=== PATIENT | male | born 1960 | race Caucasian/White ===

== ENCOUNTER 2018-12-27 09:57 | Day surgery (SDC) | payer OTHER ==
[2018-12-10 10:47] VITALS: BMI 31.4
[2018-12-27] MEDS ORDERED: PROPOFOL 20 ML ONE (11:16)
[2018-12-27 12:02] VITALS: TEMP 97.7
[2018-12-27 12:22] VITALS: BP 109/69; PULSE 83
--- NOTE | 2018-12-30 16:02 | PATH ---
Surgical Pathology Report Patient Name: KALLI CLEVELAND [facility]. Rec. #: [id number] /Age/Gender: 1960 (Age: 58) / M Account: [id number] Location: [facility] Taken: 12/27/2018 Received: 12/27/2018 Reported: 12/30/2018 Physicians: Raghav Ferreira M.D. Specimen(s) Received A: POLYP LEFT COLON B: POLYP OF DISTAL SIGMOID C: POLYP RECTUM Clinical History Screening Postoperative diagnosis: Polyp, diverticulosis Final Diagnosis A. LEFT COLON, POLYP, BIOPSY: TUBULAR ADENOMA. B. DISTAL SIGMOID, POLYP, BIOPSY: SESSILE SERRATED POLYP. C. RECTUM, POLYP, BIOPSY: SESSILE SERRATED POLYP. Electronically Signed Sandra Matthews M.D. Gross Description A. Received in formalin, labeled "polyp left colon" is a jones, irregular portion of soft tissue measuring 0.3 cm. in greatest dimension. The specimen is submitted in toto in one cassette. B. Received in formalin, labeled "polyp distal sigmoid" are 2 jones, irregular portions of soft tissue measuring 0.1 and 0.2 cm. in greatest dimension. The specimens are submitted in toto in one cassette. C. Received in formalin, labeled "polyp rectum" is a jones, irregular portion of soft tissue measuring 0.2 cm. in greatest dimension. The specimen is submitted in toto in one cassette. 12/28/2018 saudi12/28/2018
== END 2018-12-27 12:25 | disposition home or self-care (01) ==
LOC: FASU-ENDO 09:57
PROVIDERS: ATTEND Internal Medicine Gastroenterology
PROC: 0DBP8ZX Excision of Rectum, Via Natural or Artificial Opening Endoscopic, Diagnostic (ICD-10-PCS; 2018-12-27)
PROC: 0DBM8ZX Excision of Descending Colon, Via Natural or Artificial Opening Endoscopic, Diagnostic (ICD-10-PCS; principal; 2018-12-27 11:26)
DX: Z12.11 Encounter for screening for malignant neoplasm of colon (principal); K57.30 Diverticulosis of large intestine without perforation or abscess without bleeding; D12.4 Benign neoplasm of descending colon; D12.5 Benign neoplasm of sigmoid colon; D12.8 Benign neoplasm of rectum
CPT/HCPCS: 88305-TC

== ENCOUNTER 2019-02-13 20:17 | Inpatient (IN) | payer OTHER ==
[2019-02-13 23:48] VITALS: BMI 32.3
--- NOTE | 2019-02-14 00:15 | HP ---
CIWA Score Nausea/Vomitin-Mild Nausea/No Vomiting Muscle Tremors: 5 Anxiety: 4-Mod. Anxious/Guarded Agitation: 4-Moderately Restless Paroxysmal Sweats: 2 Orientation: 0-Oriented Tacttile Disturbances: 0-None Auditory Disturbances: 0-None Visual Disturbances: 0-None Headache: 2-Mild CIWA-Ar Total Score: 18 - Admission Criteria OASAS Guidelines: Admission for Medically Managed Detox: Requires at least one of the followin. CIWA greater than 12 2. Seizures within the past 24 hours 3. Delirium tremens within the past 24 hours 4. Hallucinations within the past 24 hours 5. Acute intervention needed for co occurring medical disorder 6. Acute intervention needed for co occurring psychiatric disorder 7. Severe withdrawal that cannot be handled at a lower level of care (continued vomiting, continued diarrhea, abnormal vital signs) requiring intravenous medication and/or fluids 8. Admission ROS [facility] Chief Complaint: Alcohol withdrawal symptoms Allergies/Adverse Reactions: Allergies Allergy/AdvReac Type Severity Reaction Status Date / Time No Known Allergies Allergy Verified 02/13/19 21:31 History of Present Illness: 58 years old male with a long history of alcohol dependence is seeking admission to detox. Patient has been in multiple detox facilities, last at [place], [place] and reports 14 years of sobriety. He has medical history of hypertension, COPD, Depression, back pain, arthritis and seizures. He denies suicide attempt or suicidal ideation at this time Exam Limitations: No Limitations - Ebola screening Have you traveled outside of the country in the last 21 days: No (N) Have you had contact with anyone from an Ebola affected area: No Have you been sick,other than usual withdrawal symptoms: No Do you have a fever: No - Review of Systems Constitutional: Chills EENT: reports: Sinus Pressure Respiratory: reports: No Symptoms reported Cardiac: reports: No Symptoms Reported GI: reports: Nausea, Poor Appetite, Poor Fluid Intake, Abdominal cramping : reports: No Symptoms Reported Musculoskeletal: reports: Back Pain, Muscle Pain Integumentary: reports: Dryness, Flushing Neuro: reports: Tremors Endocrine: reports: No Symptoms Reported Hematology: reports: No Symptoms Reported Psychiatric: reports: Mood/Affect Appropiate, Orientated x3, Anxious Other Systems: Reviewed and Negative Patient History - Patient Medical History Hx Anemia: No Hx Asthma: No Hx Chronic Obstructive Pulmonary Disease (COPD): Yes Hx Cancer: No Hx Cardiac Disorders: Yes (IRREGULAR HEART BEAT REPORTED BY PT) Hx Congestive Heart Failure: No Hx Hypertension: Yes Hx Hypercholesterolemia: No Hx Pacemaker: No HX Cerebrovascular Accident: No Hx Seizures: Yes (Lyrica) Hx Dementia: No Hx Diabetes: No Hx Gastrointestinal Disorders: No Hx Liver Disease: No Hx Genitourinary Disorders: No Hx Sexually Transmitted Disorders: No Hx Renal Disease (ESRD): No Hx Thyroid Disease: No Hx Human Immunodeficiency Virus (HIV): No Hx Hepatitis C: No Hx Depression: Yes Hx Suicide Attempt: No Hx Schizophrenia: No - Patient Surgical History Past Surgical History: Yes Hx Neurologic Surgery: No Hx Cataract Extraction: No Hx Cardiac Surgery: No Hx Lung Surgery: No Hx Breast Surgery: No Hx Breast Biopsy: No Hx Abdominal Surgery: No Hx Appendectomy: No Hx Cholecystectomy: No Hx Genitourinary Surgery: No Hx Orthopedic Surgery: Yes (ARTHROSCOPY RIGHT AND LEFT KNEE) Anesthesia Reaction: No - PPD History Previous Implant?: Yes Documented Results: Negative w/o proof Implanted On Prior R Admission?: No PPD to be Administered?: Yes - Reproductive History Patient is a Female of Child Bearing Age (11 -55 yrs old): No (Male) - Smoking Cessation Smoking history: Current every day smoker Have you smoked in the past 12 months: Yes Aproximately how many cigarettes per day: 20 Hx Chewing Tobacco Use: No Initiated information on smoking cessation: Yes 'Breaking Loose' booklet given: 02/14/19 - Substance & Tx. History Hx Alcohol Use: Yes Hx Substance Use: No Substance Use Type: Alcohol Hx Substance Use Treatment: Yes ([place], [place]) - Substances Abused Alcohol Route: Oral Frequency: Daily Amount used: liquor- 1 pint Age of first use: 13 Date of Last Use: 02/13/19 Family Disease History - Family Disease History Family History: Denies Admission Physical Exam BHS - Vital Signs Vital Signs: Vital Signs - 24 hr 02/13/19 23:46 Temperature 97.4 F L Pulse Rate 89 Respiratory 19 Rate Blood Pressure 140/93 - Physical General Appearance: Yes: Moderate Distress, Tremorous, Sweating, Anxious HEENTM: Yes: EOMI, Normal ENT Inspection, Normal Voice, SAQIB Respiratory: Yes: Lungs Clear, Normal Breath Sounds, No Respiratory Distress Breast: Yes: Breast Exam Deferred Cardiology: Yes: Regular Rhythm, Regular Rate Abdominal: Yes: Normal Bowel Sounds Genitourinary: Yes: Within Normal Limits Back: Yes: Normal Inspection Musculoskeletal: Yes: Back pain Extremities: Yes: Tremors Neurological: Yes: Alert, Normal Mood/Affect Integumentary: Yes: Pale Lymphatic: Yes: Within Normal Limits - Diagnostic (1) Alcohol dependence with uncomplicated withdrawal Current Visit: Yes Status: Chronic (2) Nicotine dependence Current Visit: Yes Status: Chronic Qualifiers: Nicotine product type: cigarettes Substance use status: uncomplicated Qualified Code(s): F17.210 - Nicotine dependence, cigarettes, uncomplicated (3) COPD (chronic obstructive pulmonary disease) Current Visit: Yes Status: Chronic Qualifiers: Chronic bronchitis type: unspecified (4) Hypertension Current Visit: Yes Status: Chronic Qualifiers: Hypertension type: essential hypertension Qualified Code(s): I10 - Essential (primary) hypertension (5) Seizures Current Visit: Yes Status: Chronic (6) Depression Current Visit: Yes Status: Chronic Qualifiers: Depression Type: unspecified Qualified Code(s): F32.9 - Major depressive disorder, single episode, unspecified (7) Arthritis Current Visit: Yes Status: Chronic (8) Back pain Current Visit: Yes Status: Chronic Cleared for Admission S - Detox or Rehab [facility] Level of Care: Medically Managed Detox Regimen/Protocol: Librium S Breath Alcohol Content Breath Alcohol Content: 0.130 Urine Drug Screen - Results Drug Screen Negative: Yes Inpatient Rehab Admission - Rehab Decision to Admit Inpatient rehab admission?: No
[2019-02-14] MEDS ORDERED: NICOTINE POLACRILEX 2 MG GUM BUC PRN (00:35)
[2019-02-14] MEDS ORDERED: MAG HYDROX/AL HYDROX/SIMETH 30 ML UNIT-DOSE CUP PO PRN (00:35)
[2019-02-14] MEDS ORDERED: IBUPROFEN 400 MG TABLET (FP) PO PRN (00:35)
[2019-02-14] MEDS ORDERED: MENTHOL/PHENOL 1 EACH UD MM PRN (00:35)
[2019-02-14] MEDS ORDERED: MAGNESIUM HYDROX 2400MG/30ML ORAL SUSPENSION 30 ML CUP PO PRN (00:35)
[2019-02-14] MEDS ORDERED: MAGNESIUM CITRATE 300 ML BOTTLE PO PRN (00:35)
[2019-02-14] MEDS ORDERED: chlordiazePOXIDE HCL 25 MG CAPSULE PO PRN (00:35)
[2019-02-14] MEDS ORDERED: hydrOXYzine PAMOATE 25 MG CAPSULE (FP) PO PRN (00:35)
[2019-02-14] MEDS ORDERED: BISMUTH SUBSALICYLATE 524 MG/30 ML UD PO PRN (00:35)
[2019-02-14] MEDS ORDERED: ACETAMINOPHEN 325 MG TABLET (FP) PO PRN ×2 (00:35)
[2019-02-14] MEDS: chlordiazePOXIDE HCL 25 MG CAPSULE PO SCH ×4 (06:41→22:19)
--- NOTE | 2019-02-14 10:24 | CONSULT ---
[facility] Psychiatric Consult - Data Date of interview: 02/14/19 Admission source: Experience Recovery in [place] Identifying data: Mr Rizvi is a 58 years old male, father of 2 sons, unemployed receibving SSD, homeless seeking detox treatment for alcohol Substance Abuse History: Reports history of alcohol use, He started drinkind alcohol at age 13, consumes one pint daily. Last drank on 02/13/19. Refer to addiction counselor's summary information Medical History: Significant for COPD, hypertension, back pain, arthritis, history of seizure disorder and arthroscopic surgery both knees. Smokes cigarettes 1 ppd Psychiatric History: Reports that his first psychiatric contact was approximately 4 years ago. He said that he saw a psychiatrist at at a clinic, diagnosed with MDD and prescribed Effexor. Reports that he has been taking that medication since. He is currently precribed Effexor XR 225 mg/day by his primary care physician. Denies previous psychiatric hospitalization or suicidal attempt. At present, reports feeling anxious, mildly depressed and sleeping poorly Physical/Sexual Abuse/Trauma History: Denies history of emotional, physical or sexual abuse as well as DV relationship. No service Additional Comment: Reports previous arrest for DWI. Missed a court date in [place], [place] yesterday Mental Status Exam - Mental Status Exam Alert and Oriented to: Time, Place, Person Cognitive Function: Fair Patient Appearance: Well Groomed Mood: Depressed, Anxious Affect: Appropriate Patient Behavior: Cooperative Speech Pattern: Clear Voice Loudness: Normal Thought Process: Intact, Goal Oriented Hallucinations: Denies Suicidal Ideation: Denies Homicidal Ideation: Denies Insight/Judgement: Poor Sleep: Poorly Appetite: Poor Muscle strength/Tone: Normal Gait/Station: Other Psychiatric Findings - Problem List ([place] 1, 2,3) (1) MDD (major depressive disorder) Current Visit: Yes Status: Chronic (2) Alcohol-induced mood disorder Current Visit: Yes Status: Acute (3) Alcohol-induced sleep disorder Current Visit: Yes Status: Acute (4) Alcohol dependence with uncomplicated withdrawal Current Visit: Yes Status: Acute (5) Nicotine dependence Current Visit: Yes Status: Chronic Qualifiers: Nicotine product type: cigarettes Substance use status: uncomplicated Qualified Code(s): F17.210 - Nicotine dependence, cigarettes, uncomplicated (6) Arthritis Current Visit: Yes Status: Chronic (7) Back pain Current Visit: Yes Status: Chronic (8) Hypertension Current Visit: Yes Status: Chronic Qualifiers: Hypertension type: essential hypertension Qualified Code(s): I10 - Essential (primary) hypertension (9) Seizures Current Visit: Yes Status: Chronic - Initial Treatment Plan Initial Treatment Plan: 1) Continue Effexor XR 225 mg po daily. 2) Start Trazadone 100 mg po HS. 3) Continue inpatient detoxification
--- NOTE | 2019-02-14 11:21 | EKG ---
Test Reason : Blood Pressure : / mmHG Vent. Rate : 086 BPM Atrial Rate : 086 BPM P-R Int : 162 ms QRS Dur : 088 ms QT Int : 370 ms P-R-T Axes : 055 025 058 degrees QTc Int : 442 ms NORMAL SINUS RHYTHM NORMAL ECG NO PREVIOUS ECGS AVAILABLE Confirmed by STEVEN LAUREANO MD ([id number]) on 02/14/2019 11:21:31 AM Referred By: Confirmed By:STEVEN LAUREANO MD
[2019-02-14] MEDS: PRENATAL VITAMINS W/ FOLIC ACID TABLET (FP) PO SCH (11:23)
[2019-02-14] MEDS: NICOTINE 14 MG/24 HOURS TOPICAL PATCH TD SCH (11:23)
[2019-02-14] MEDS: PREGABALIN 100 MG CAPSULE PO SCH ×2 (11:23→22:19)
[2019-02-14] MEDS: metoPROLOL SUCCINATE 25 MG TAB.SR.24H (FP) PO SCH (11:29)
--- NOTE | 2019-02-14 11:30 | PN ---
S CIWA - CIWA Score Nausea/Vomitin-No Nausea/No Vomiting Muscle Tremors: 4-Moderate,w/Arms Extend Anxiety: 4-Mod. Anxious/Guarded Agitation: 4-Moderately Restless Paroxysmal Sweats: 3 Orientation: 0-Oriented Tacttile Disturbances: 0-None Auditory Disturbances: 0-None Visual Disturbances: 0-None Headache: 1-Very Mild CIWA-Ar Total Score: 16 BHS Progress Note (SOAP) Subjective: shakes sweats headache interrupted sleep anxiety Objective: 02/14/19 11:30 Vital Signs Temperature 97.0 F L 02/14/19 08:54 Pulse Rate 96 H 02/14/19 08:54 Respiratory Rate 18 02/14/19 08:54 Blood Pressure 107/75 02/14/19 08:54 O2 Sat by Pulse Oximetry (%) labs pending aaox3 ambulating no acute distress Assessment: 02/14/19 11:30 withdrawal sx Plan: continue detox increase fluids labs pending
[2019-02-14] MEDS: THIAMINE HCL 100 MG TABLET (FP) PO SCH (22:20)
[2019-02-14] MEDS: MELATONIN 5 MG TABLETS PO PRN (22:20)
[2019-02-14] MEDS: METHOCARBAMOL 500 MG TABLET PO PRN (22:22)
[2019-02-15] MEDS: chlordiazePOXIDE HCL 25 MG CAPSULE PO SCH ×4 (05:14→22:00)
[2019-02-15 10:10] LABS: HEMATOCRIT 49.8 % (35.4-49); HEMOGLOBIN 16.9 GM/dL (11.7-16.9); MCH 33.9 pg (25.7-33.7); MEAN CELL VOLUME 99.9 fl (80-96); MEAN PLT VOLUME 9.4 fl (7.5-11.1); PLATELET COUNT 218 K/MM3 (134-434); RBC 4.98 M/mm3 (4.00-5.60); RDW 14.4 % (11.9-15.9); WHITE BLOOD COUNT 7.8 K/mm3 (4.0-10.0)
[2019-02-15] MEDS: PREGABALIN 100 MG CAPSULE PO SCH ×2 (10:29→21:55)
[2019-02-15] MEDS: PRENATAL VITAMINS W/ FOLIC ACID TABLET (FP) PO SCH (10:29)
[2019-02-15] MEDS: metoPROLOL SUCCINATE 25 MG TAB.SR.24H (FP) PO SCH (10:29)
[2019-02-15] MEDS: NICOTINE 14 MG/24 HOURS TOPICAL PATCH TD SCH (10:30)
--- NOTE | 2019-02-15 10:30 | PN ---
S CIWA - CIWA Score Nausea/Vomitin-No Nausea/No Vomiting Muscle Tremors: 3 Anxiety: 3 Agitation: 3 Paroxysmal Sweats: 3 Orientation: 0-Oriented Tacttile Disturbances: 0-None Auditory Disturbances: 0-None Visual Disturbances: 0-None Headache: 0-None Present CIWA-Ar Total Score: 12 BHS Progress Note (SOAP) Subjective: sweats shakes interrupted sleep body aches Objective: 02/15/19 10:29 Vital Signs Temperature 97.7 F 02/15/19 06:00 Pulse Rate 94 H 02/15/19 06:00 Respiratory Rate 18 02/15/19 06:00 Blood Pressure 135/79 02/15/19 06:00 O2 Sat by Pulse Oximetry (%) Laboratory Tests 02/15/19 07:00 WBC 7.8 RBC 4.98 Hgb 16.9 Hct 49.8 H MCV 99.9 H MCH 33.9 H MCHC 34.0 RDW 14.4 Plt Count 218 MPV 9.4 rest of labs pending aaox3 ambulating no acute distress Assessment: 02/15/19 10:29 withdrawal sx Plan: continue detox increase fluids rest of labs pending
[2019-02-15 10:36] LABS: ALBUMIN 3.4 g/dl (3.4-5.0); ALK PHOS 80 U/L (45-117); ANION GAP 4 MMOL/L (8-16); BILIRUBIN,TOTAL 0.8 mg/dL (0.2-1); BLOOD UREA NITROGEN 14 mg/dL (7-18); CALCIUM 9.3 mg/dL (8.5-10.1); CHLORIDE 106 mmol/L (98-107); CO2 31 mmol/L (21-32); CREATININE 0.9 mg/dL (0.55-1.3); GLUCOSE,RANDOM 113 mg/dL (74-106); POTASSIUM 4.4 mmol/L (3.5-5.1); SGOT/AST 16 U/L (15-37); SGPT/ALT 26 U/L (13-61); SODIUM 141 mmol/L (136-145); TOT PROT 6.3 g/dl (6.4-8.2)
[2019-02-15] MEDS: VENLAFAXINE HCL 75 MG E.R. CAPSULES (FP) PO SCH (13:04)
[2019-02-15] MEDS: traZODone HCL 100 MG TABLET (FP) PO SCH (21:55)
[2019-02-15] MEDS: THIAMINE HCL 100 MG TABLET (FP) PO SCH (21:55)
[2019-02-16] MEDS ORDERED: chlordiazePOXIDE HCL 10 MG CAPSULE PO PRN (05:00)
[2019-02-16] MEDS: chlordiazePOXIDE HCL 10 MG CAPSULE PO SCH ×4 (06:11→22:14)
[2019-02-16] MEDS: PRENATAL VITAMINS W/ FOLIC ACID TABLET (FP) PO SCH (10:45)
[2019-02-16] MEDS: PREGABALIN 100 MG CAPSULE PO SCH ×2 (10:45→22:14)
[2019-02-16] MEDS: METHOCARBAMOL 500 MG TABLET PO PRN (10:45)
[2019-02-16] MEDS: NICOTINE 14 MG/24 HOURS TOPICAL PATCH TD SCH (10:46)
[2019-02-16] MEDS: metoPROLOL SUCCINATE 25 MG TAB.SR.24H (FP) PO SCH (10:46)
[2019-02-16] MEDS: VENLAFAXINE HCL 75 MG E.R. CAPSULES (FP) PO SCH (10:46)
[2019-02-16] MEDS ORDERED: BACLOFEN 10 MG TABLET (FP) PO ONE (11:41)
[2019-02-16] MEDS: BACLOFEN 10 MG TABLET (FP) PO SCH ×2 (13:38→22:14)
[2019-02-16] MEDS: IBUPROFEN 400 MG TABLET (FP) PO PRN (13:39)
[2019-02-16] MEDS: traZODone HCL 100 MG TABLET (FP) PO SCH (22:13)
[2019-02-16] MEDS: THIAMINE HCL 100 MG TABLET (FP) PO SCH (22:14)
[2019-02-17] MEDS: BACLOFEN 10 MG TABLET (FP) PO SCH ×3 (06:21→22:28)
[2019-02-17] MEDS: chlordiazePOXIDE HCL 10 MG CAPSULE PO SCH ×2 (06:21→17:25)
--- NOTE | 2019-02-17 09:56 | PN ---
BHS Progress Note (SOAP) Subjective: tired sweats body aches Objective: 02/17/19 09:55 Vital Signs Temperature 97.8 F L 02/17/19 10:00 Pulse Rate 71 02/17/19 10:00 Respiratory Rate 18 02/17/19 10:00 Blood Pressure 107/58 02/17/19 10:00 O2 Sat by Pulse Oximetry (%) Laboratory Tests 02/15/19 02/15/19 02/15/19 07:00 07:00 07:00 WBC 7.8 RBC 4.98 Hgb 16.9 Hct 49.8 H MCV 99.9 H MCH 33.9 H MCHC 34.0 RDW 14.4 Plt Count 218 MPV 9.4 Sodium 141 Potassium 4.4 Chloride 106 Carbon Dioxide 31 Anion Gap 4 L BUN 14 Creatinine 0.9 Creat Clearance w eGFR 86.08 Random Glucose 113 H Calcium 9.3 Total Bilirubin 0.8 AST 16 ALT 26 Alkaline Phosphatase 80 Total Protein 6.3 L Albumin 3.4 RPR Titer Nonreactive aaox3 ambulating no acute distress Assessment: 02/17/19 09:56 mild withdrawal sx Plan: continue detox increase fluids d/c in am
[2019-02-17] MEDS: PREGABALIN 100 MG CAPSULE PO SCH ×2 (10:21→22:28)
[2019-02-17] MEDS: NICOTINE 14 MG/24 HOURS TOPICAL PATCH TD SCH (10:21)
[2019-02-17] MEDS: metoPROLOL SUCCINATE 25 MG TAB.SR.24H (FP) PO SCH (10:22)
[2019-02-17] MEDS: VENLAFAXINE HCL 75 MG E.R. CAPSULES (FP) PO SCH (10:22)
[2019-02-17] MEDS: PRENATAL VITAMINS W/ FOLIC ACID TABLET (FP) PO SCH (10:22)
--- NOTE | 2019-02-17 11:08 | PN ---
BHS Progress Note (SOAP) Subjective: body aches Objective: 02/17/19 11:10 Vital Signs Temperature 97.8 F 02/17/19 10:17 Pulse Rate 71 02/17/19 10:17 Respiratory Rate 18 02/17/19 10:17 Blood Pressure 107/58 L 02/17/19 10:17 O2 Sat by Pulse Oximetry (%) aaox3 ambulating no acute distress Assessment: 02/17/19 11:11 mild withdrawal sx Plan: continue detox increase fluids d/c in am
[2019-02-17] MEDS: traZODone HCL 100 MG TABLET (FP) PO SCH (22:28)
[2019-02-17] MEDS: THIAMINE HCL 100 MG TABLET (FP) PO SCH (22:28)
[2019-02-17] MEDS: IBUPROFEN 400 MG TABLET (FP) PO PRN (22:29)
[2019-02-18] MEDS: chlordiazePOXIDE HCL 10 MG CAPSULE PO SCH (05:36)
[2019-02-18] MEDS: BACLOFEN 10 MG TABLET (FP) PO SCH ×3 (05:36→22:06)
[2019-02-18] MEDS: IBUPROFEN 400 MG TABLET (FP) PO PRN ×2 (05:38→15:08)
--- NOTE | 2019-02-18 09:25 | DS ---
[facility] Detox Discharge Summary Admission Date: 02/14/19 Discharge Date: 02/18/19 - History Present History: Alcohol Dependence - Physical Exam Results Vital Signs: Vital Signs Temperature 97.0 F L 02/18/19 06:44 Pulse Rate 75 02/18/19 06:44 Respiratory Rate 18 02/18/19 06:44 Blood Pressure 120/62 02/18/19 06:44 O2 Sat by Pulse Oximetry (%) - Treatment Hospital Course: Detox Protocol Followed, Detoxed Safely, Responded well, Discharged Condition Good, Rehab Referral Accepted - Medication Discharge Medications: Ambulatory Orders Baclofen 10 mg PO BID 12/10/18 Metoprolol Succinate [Toprol Xl] 12.5 mg PO DAILY 12/10/18 Pregabalin [Lyrica] 300 mg PO BID 12/10/18 Venlafaxine HCl [Effexor -] 225 mg PO DAILY 12/10/18 - Diagnosis (1) Alcohol dependence with uncomplicated withdrawal Current Visit: Yes Status: Chronic (2) Alcohol-induced mood disorder Current Visit: Yes Status: Acute (3) Alcohol-induced sleep disorder Current Visit: Yes Status: Acute (4) Arthritis Current Visit: Yes Status: Chronic (5) Back pain Current Visit: Yes Status: Chronic Qualifiers: Back pain location: low back pain Chronicity: unspecified Back pain laterality: unspecified (6) COPD (chronic obstructive pulmonary disease) Current Visit: Yes Status: Chronic Qualifiers: Chronic bronchitis type: unspecified (7) Depression Current Visit: Yes Status: Chronic Qualifiers: Depression Type: unspecified Qualified Code(s): F32.9 - Major depressive disorder, single episode, unspecified (8) Hypertension Current Visit: Yes Status: Chronic Qualifiers: Hypertension type: essential hypertension Qualified Code(s): I10 - Essential (primary) hypertension (9) MDD (major depressive disorder) Current Visit: Yes Status: Chronic (10) Nicotine dependence Current Visit: Yes Status: Chronic Qualifiers: Nicotine product type: cigarettes Substance use status: uncomplicated Qualified Code(s): F17.210 - Nicotine dependence, cigarettes, uncomplicated (11) Seizures Current Visit: Yes Status: Chronic - AMA Did Patient Leave Against Medical Advice: No (experience experience)
[2019-02-18] MEDS: PREGABALIN 100 MG CAPSULE PO SCH ×2 (11:23→22:06)
[2019-02-18] MEDS: PRENATAL VITAMINS W/ FOLIC ACID TABLET (FP) PO SCH (11:23)
[2019-02-18] MEDS: VENLAFAXINE HCL 75 MG E.R. CAPSULES (FP) PO SCH (11:24)
[2019-02-18] MEDS: NICOTINE 14 MG/24 HOURS TOPICAL PATCH TD SCH (11:24)
[2019-02-18] MEDS: metoPROLOL SUCCINATE 25 MG TAB.SR.24H (FP) PO SCH (13:23)
[2019-02-18] MEDS: traZODone HCL 100 MG TABLET (FP) PO SCH (22:06)
[2019-02-18] MEDS: THIAMINE HCL 100 MG TABLET (FP) PO SCH (22:06)
[2019-02-19] MEDS: BACLOFEN 10 MG TABLET (FP) PO SCH ×3 (07:00→21:17)
[2019-02-19] MEDS: PRENATAL VITAMINS W/ FOLIC ACID TABLET (FP) PO SCH (09:56)
[2019-02-19] MEDS: PREGABALIN 100 MG CAPSULE PO SCH ×2 (09:56→21:17)
[2019-02-19] MEDS: IBUPROFEN 400 MG TABLET (FP) PO PRN ×2 (09:56→21:18)
[2019-02-19] MEDS: NICOTINE 14 MG/24 HOURS TOPICAL PATCH TD SCH (09:58)
[2019-02-19] MEDS: VENLAFAXINE HCL 75 MG E.R. CAPSULES (FP) PO SCH (10:46)
[2019-02-19] MEDS: metoPROLOL SUCCINATE 25 MG TAB.SR.24H (FP) PO SCH (13:41)
[2019-02-19] MEDS: THIAMINE HCL 100 MG TABLET (FP) PO SCH (21:17)
[2019-02-19] MEDS: traZODone HCL 100 MG TABLET (FP) PO SCH (21:17)
[2019-02-20] MEDS: ALBUTEROL SO4 2.5/IPRATROPIUM 0.5 INH SOL 3 ML VIAL.NEB. NEB PRN (05:23)
[2019-02-20] MEDS: BACLOFEN 10 MG TABLET (FP) PO SCH ×3 (07:09→22:04)
[2019-02-20] MEDS: PRENATAL VITAMINS W/ FOLIC ACID TABLET (FP) PO SCH (10:06)
[2019-02-20] MEDS: metoPROLOL SUCCINATE 25 MG TAB.SR.24H (FP) PO SCH (10:06)
[2019-02-20] MEDS: PREGABALIN 100 MG CAPSULE PO SCH ×2 (10:06→22:04)
[2019-02-20] MEDS: VENLAFAXINE HCL 75 MG E.R. CAPSULES (FP) PO SCH (10:06)
[2019-02-20] MEDS: NICOTINE 14 MG/24 HOURS TOPICAL PATCH TD SCH (10:07)
[2019-02-20] MEDS: IBUPROFEN 400 MG TABLET (FP) PO PRN (14:27)
--- NOTE | 2019-02-20 15:55 | PN ---
S Progress Note (SOAP) Subjective: C/o dripping from (R) ear x 3 days. Denies ear pain. Denies nasal congestion. Currently taking ibuprofen 800 mg for back pain. States has been cleaning ear out w/ peroxide and q-tips 2-3 x/per day. Objective: A&O x 3. Sclera w/ siight injection. Lungs CTA. Mild nasal congestion (L) nares. (L) TM w/ slight erythema - no bulging, no discharge. (R) TM w/ slight erythema, canal w/ increased moisture. External ear w/ excoriation rash w/ clear exudate. Vital Signs - 24 hr 02/20/19 02/20/19 02/20/19 00:30 03:30 07:05 Temperature 97.3 F L Pulse Rate 72 Respiratory 18 18 18 Rate Blood Pressure 104/59 L 02/20/19 10:00 Temperature Pulse Rate 84 Respiratory 16 Rate Blood Pressure 133/67 Assessment: Bilateral otitis media. External otitis media (R) External ear rash. Plan: Plan: Stop peroxide. Zithromax PO Acetic Acid Ear drops (R) ear) Cortisone cream and bacitracin to external ear.
[2019-02-20] MEDS ORDERED: AZITHROMYCIN 250 MG TABLET PO ONE (16:01)
[2019-02-20] MEDS: BACITRACIN 0.9 GM PACKET TP SCH ×2 (17:42→22:05)
[2019-02-20] MEDS: HYDROCORTISONE 1% TOPICAL CREAM 30 GM TUBE TP SCH ×2 (17:43→22:05)
[2019-02-20] MEDS ORDERED: ACETIC ACID 2% OTIC SOLN 15ML BOTTLE AD SCH (22:00)
[2019-02-20] MEDS: THIAMINE HCL 100 MG TABLET (FP) PO SCH (22:04)
[2019-02-20] MEDS: traZODone HCL 100 MG TABLET (FP) PO SCH (22:04)
[2019-02-20] MEDS: ACETIC ACID 2% OTIC SOLN 15ML BOTTLE AD SCH (22:22)
[2019-02-21] MEDS: BACLOFEN 10 MG TABLET (FP) PO SCH ×3 (05:57→21:21)
[2019-02-21] MEDS: ACETIC ACID 2% OTIC SOLN 15ML BOTTLE AD SCH ×3 (06:12→21:23)
[2019-02-21] MEDS: BACITRACIN 0.9 GM PACKET TP SCH ×4 (10:27→21:22)
[2019-02-21] MEDS: PRENATAL VITAMINS W/ FOLIC ACID TABLET (FP) PO SCH (10:27)
[2019-02-21] MEDS: VENLAFAXINE HCL 75 MG E.R. CAPSULES (FP) PO SCH (10:27)
[2019-02-21] MEDS: HYDROCORTISONE 1% TOPICAL CREAM 30 GM TUBE TP SCH ×4 (10:27→21:22)
[2019-02-21] MEDS: PREGABALIN 100 MG CAPSULE PO SCH ×2 (10:27→21:21)
[2019-02-21] MEDS: NICOTINE 14 MG/24 HOURS TOPICAL PATCH TD SCH (10:28)
[2019-02-21] MEDS: metoPROLOL SUCCINATE 25 MG TAB.SR.24H (FP) PO SCH (11:00)
[2019-02-21] MEDS: ALBUTEROL SO4 2.5/IPRATROPIUM 0.5 INH SOL 3 ML VIAL.NEB. NEB PRN (11:03)
[2019-02-21] MEDS: IBUPROFEN 400 MG TABLET (FP) PO PRN (14:12)
[2019-02-21] MEDS ORDERED: ALBUTEROL SO4 8 GM HFA INHALER IH PRN (15:00)
[2019-02-21] MEDS: AZITHROMYCIN 250 MG TABLET PO SCH (17:50)
[2019-02-21] MEDS: THIAMINE HCL 100 MG TABLET (FP) PO SCH (21:21)
[2019-02-21] MEDS: traZODone HCL 100 MG TABLET (FP) PO SCH (21:21)
[2019-02-22] MEDS: ACETIC ACID 2% OTIC SOLN 15ML BOTTLE AD SCH ×3 (06:13→21:20)
[2019-02-22] MEDS: BACLOFEN 10 MG TABLET (FP) PO SCH ×3 (06:13→21:18)
[2019-02-22] MEDS: PREGABALIN 100 MG CAPSULE PO SCH ×2 (10:04→17:46)
[2019-02-22] MEDS: PRENATAL VITAMINS W/ FOLIC ACID TABLET (FP) PO SCH (10:04)
[2019-02-22] MEDS: VENLAFAXINE HCL 75 MG E.R. CAPSULES (FP) PO SCH (10:05)
[2019-02-22] MEDS: metoPROLOL SUCCINATE 25 MG TAB.SR.24H (FP) PO SCH (10:05)
[2019-02-22] MEDS: HYDROCORTISONE 1% TOPICAL CREAM 30 GM TUBE TP SCH ×4 (10:06→21:19)
[2019-02-22] MEDS: NICOTINE 14 MG/24 HOURS TOPICAL PATCH TD SCH (10:06)
[2019-02-22] MEDS: BACITRACIN 0.9 GM PACKET TP SCH ×4 (10:06→21:19)
[2019-02-22] MEDS: AZITHROMYCIN 250 MG TABLET PO SCH (17:46)
[2019-02-22] MEDS: THIAMINE HCL 100 MG TABLET (FP) PO SCH (21:18)
[2019-02-22] MEDS: traZODone HCL 100 MG TABLET (FP) PO SCH (21:18)
[2019-02-22] MEDS ORDERED: PREGABALIN 75 MG CAPSULE PO SCH (22:00)
[2019-02-23] MEDS: PREGABALIN 100 MG CAPSULE PO SCH ×2 (06:44→17:45)
[2019-02-23] MEDS: ACETIC ACID 2% OTIC SOLN 15ML BOTTLE AD SCH ×3 (06:45→21:24)
[2019-02-23] MEDS: BACLOFEN 10 MG TABLET (FP) PO SCH ×3 (06:45→21:23)
[2019-02-23] MEDS: VENLAFAXINE HCL 75 MG E.R. CAPSULES (FP) PO SCH (10:11)
[2019-02-23] MEDS: PRENATAL VITAMINS W/ FOLIC ACID TABLET (FP) PO SCH (10:12)
[2019-02-23] MEDS: metoPROLOL SUCCINATE 25 MG TAB.SR.24H (FP) PO SCH (10:12)
[2019-02-23] MEDS: HYDROCORTISONE 1% TOPICAL CREAM 30 GM TUBE TP SCH ×4 (10:13→21:25)
[2019-02-23] MEDS: BACITRACIN 0.9 GM PACKET TP SCH ×4 (10:13→21:25)
[2019-02-23] MEDS: NICOTINE 14 MG/24 HOURS TOPICAL PATCH TD SCH (10:14)
[2019-02-23] MEDS: AZITHROMYCIN 250 MG TABLET PO SCH (17:46)
[2019-02-23] MEDS: THIAMINE HCL 100 MG TABLET (FP) PO SCH (21:23)
[2019-02-23] MEDS: traZODone HCL 100 MG TABLET (FP) PO SCH (21:23)
[2019-02-24] MEDS: PREGABALIN 100 MG CAPSULE PO SCH ×2 (06:40→17:55)
[2019-02-24] MEDS: BACLOFEN 10 MG TABLET (FP) PO SCH ×3 (06:40→21:19)
[2019-02-24] MEDS: ACETIC ACID 2% OTIC SOLN 15ML BOTTLE AD SCH ×3 (06:41→21:20)
--- NOTE | 2019-02-24 11:10 | PN ---
BHS Progress Note Note: PT REQUESTING TO SEE PSYCH MD TO DECREASE HIS TRAZODONE DOSE. ALERT O X 3. OOB ANBULATING WITH ASSISTANCE OF CANE. Vital Signs 02/24/19 02/24/19 03:30 06:49 Temperature 97.2 F L Pulse Rate 75 Respiratory 18 18 Rate Blood Pressure 116/77 PLAN:PSYCH CONSULT FOR MED RE-EVALUATION TODAY.
[2019-02-24] MEDS: PRENATAL VITAMINS W/ FOLIC ACID TABLET (FP) PO SCH (11:15)
[2019-02-24] MEDS: IBUPROFEN 400 MG TABLET (FP) PO PRN (11:16)
[2019-02-24] MEDS: BACITRACIN 0.9 GM PACKET TP SCH ×4 (11:17→21:20)
[2019-02-24] MEDS: VENLAFAXINE HCL 75 MG E.R. CAPSULES (FP) PO SCH (11:17)
[2019-02-24] MEDS: metoPROLOL SUCCINATE 25 MG TAB.SR.24H (FP) PO SCH (11:18)
[2019-02-24] MEDS: HYDROCORTISONE 1% TOPICAL CREAM 30 GM TUBE TP SCH ×4 (11:19→21:20)
[2019-02-24] MEDS: NICOTINE 14 MG/24 HOURS TOPICAL PATCH TD SCH (11:20)
--- NOTE | 2019-02-24 15:22 | PN ---
[facility] Progress Note Note: Called by nursing staff on behalf of patient requesting that his Trazadone dosage be increased to 150 mg po HS for insomnia
[2019-02-24] MEDS: traZODone HCL 50 MG TABLET (FP) PO SCH (21:19)
[2019-02-24] MEDS: THIAMINE HCL 100 MG TABLET (FP) PO SCH (21:19)
[2019-02-24] MEDS ORDERED: traZODone HCL 50 MG TABLET (FP) PO SCH (22:00)
[2019-02-25] MEDS: BACLOFEN 10 MG TABLET (FP) PO SCH ×3 (06:24→21:21)
[2019-02-25] MEDS: PREGABALIN 100 MG CAPSULE PO SCH ×2 (06:24→18:05)
[2019-02-25] MEDS: ACETIC ACID 2% OTIC SOLN 15ML BOTTLE AD SCH ×2 (06:25→14:11)
[2019-02-25] MEDS: metoPROLOL SUCCINATE 25 MG TAB.SR.24H (FP) PO SCH (10:22)
[2019-02-25] MEDS: BACITRACIN 0.9 GM PACKET TP SCH ×2 (10:22→14:11)
[2019-02-25] MEDS: VENLAFAXINE HCL 75 MG E.R. CAPSULES (FP) PO SCH (10:22)
[2019-02-25] MEDS: PRENATAL VITAMINS W/ FOLIC ACID TABLET (FP) PO SCH (10:22)
[2019-02-25] MEDS: IBUPROFEN 400 MG TABLET (FP) PO PRN (10:22)
[2019-02-25] MEDS: NICOTINE 14 MG/24 HOURS TOPICAL PATCH TD SCH (10:23)
[2019-02-25] MEDS: HYDROCORTISONE 1% TOPICAL CREAM 30 GM TUBE TP SCH ×2 (10:23→14:11)
[2019-02-25] MEDS ORDERED: ALBUTEROL SO4 2.5/IPRATROPIUM 0.5 INH SOL 3 ML VIAL.NEB. NEB PRN (11:36)
--- NOTE | 2019-02-25 12:09 | PN ---
S Progress Note Note: NEBULIZER TX WITH DUONEB I AMP Q6H PRN RENEWED. ALERT O X3. NAD. Vital Signs - 24 hr 02/25/19 02/25/19 02/25/19 00:30 03:30 06:57 Temperature 97.2 F L Pulse Rate 70 Respiratory 18 18 18 Rate Blood Pressure 125/80 Laboratory Tests 02/15/19 02/15/19 02/15/19 07:00 07:00 07:00 WBC 7.8 RBC 4.98 Hgb 16.9 Hct 49.8 H MCV 99.9 H MCH 33.9 H MCHC 34.0 RDW 14.4 Plt Count 218 MPV 9.4 Sodium 141 Potassium 4.4 Chloride 106 Carbon Dioxide 31 Anion Gap 4 L BUN 14 Creatinine 0.9 Creat Clearance w eGFR 86.08 Random Glucose 113 H Calcium 9.3 Total Bilirubin 0.8 AST 16 ALT 26 Alkaline Phosphatase 80 Total Protein 6.3 L Albumin 3.4 RPR Titer Nonreactive A:HX COPD PLAN:CONTINUE REHAB
[2019-02-25] MEDS: THIAMINE HCL 100 MG TABLET (FP) PO SCH (21:21)
[2019-02-25] MEDS: traZODone HCL 50 MG TABLET (FP) PO SCH (21:22)
[2019-02-26] MEDS: BACLOFEN 10 MG TABLET (FP) PO SCH ×3 (06:25→21:08)
[2019-02-26] MEDS: PREGABALIN 100 MG CAPSULE PO SCH ×2 (06:26→17:53)
[2019-02-26] MEDS: PRENATAL VITAMINS W/ FOLIC ACID TABLET (FP) PO SCH (09:49)
[2019-02-26] MEDS: NICOTINE 14 MG/24 HOURS TOPICAL PATCH TD SCH (09:49)
[2019-02-26] MEDS: VENLAFAXINE HCL 75 MG E.R. CAPSULES (FP) PO SCH (09:49)
[2019-02-26] MEDS: metoPROLOL SUCCINATE 25 MG TAB.SR.24H (FP) PO SCH (09:50)
[2019-02-26] MEDS: traZODone HCL 50 MG TABLET (FP) PO SCH (21:08)
[2019-02-26] MEDS: THIAMINE HCL 100 MG TABLET (FP) PO SCH (21:08)
[2019-02-27] MEDS: BACLOFEN 10 MG TABLET (FP) PO SCH ×3 (06:49→21:10)
[2019-02-27] MEDS: PREGABALIN 100 MG CAPSULE PO SCH ×2 (06:49→17:26)
[2019-02-27] MEDS: NICOTINE 14 MG/24 HOURS TOPICAL PATCH TD SCH (11:06)
[2019-02-27] MEDS: VENLAFAXINE HCL 75 MG E.R. CAPSULES (FP) PO SCH (11:07)
[2019-02-27] MEDS: PRENATAL VITAMINS W/ FOLIC ACID TABLET (FP) PO SCH (11:07)
[2019-02-27] MEDS: metoPROLOL SUCCINATE 25 MG TAB.SR.24H (FP) PO SCH (11:07)
[2019-02-27] MEDS: traZODone HCL 50 MG TABLET (FP) PO SCH (21:10)
[2019-02-27] MEDS: THIAMINE HCL 100 MG TABLET (FP) PO SCH (21:10)
[2019-02-28] MEDS: BACLOFEN 10 MG TABLET (FP) PO SCH ×3 (06:36→21:19)
[2019-02-28] MEDS: PREGABALIN 100 MG CAPSULE PO SCH ×2 (06:36→17:41)
[2019-02-28] MEDS: VENLAFAXINE HCL 75 MG E.R. CAPSULES (FP) PO SCH (09:49)
[2019-02-28] MEDS: PRENATAL VITAMINS W/ FOLIC ACID TABLET (FP) PO SCH (09:49)
[2019-02-28] MEDS: NICOTINE 14 MG/24 HOURS TOPICAL PATCH TD SCH (09:50)
[2019-02-28] MEDS: metoPROLOL SUCCINATE 25 MG TAB.SR.24H (FP) PO SCH (09:50)
[2019-02-28] MEDS: traZODone HCL 50 MG TABLET (FP) PO SCH (21:19)
[2019-02-28] MEDS: THIAMINE HCL 100 MG TABLET (FP) PO SCH (21:19)
[2019-03-01] MEDS: PREGABALIN 100 MG CAPSULE PO SCH ×2 (06:22→17:46)
[2019-03-01] MEDS: BACLOFEN 10 MG TABLET (FP) PO SCH ×3 (06:22→21:27)
[2019-03-01] MEDS: IBUPROFEN 400 MG TABLET (FP) PO PRN (06:23)
[2019-03-01] MEDS: metoPROLOL SUCCINATE 25 MG TAB.SR.24H (FP) PO SCH (10:16)
[2019-03-01] MEDS: PRENATAL VITAMINS W/ FOLIC ACID TABLET (FP) PO SCH (10:16)
[2019-03-01] MEDS: VENLAFAXINE HCL 75 MG E.R. CAPSULES (FP) PO SCH (10:16)
[2019-03-01] MEDS: NICOTINE 14 MG/24 HOURS TOPICAL PATCH TD SCH (10:17)
[2019-03-01] MEDS: traZODone HCL 50 MG TABLET (FP) PO SCH (21:27)
[2019-03-01] MEDS: THIAMINE HCL 100 MG TABLET (FP) PO SCH (21:27)
[2019-03-02] MEDS: PREGABALIN 100 MG CAPSULE PO SCH ×2 (06:52→17:45)
[2019-03-02] MEDS: BACLOFEN 10 MG TABLET (FP) PO SCH ×3 (06:52→21:13)
[2019-03-02] MEDS: PRENATAL VITAMINS W/ FOLIC ACID TABLET (FP) PO SCH (10:01)
[2019-03-02] MEDS: VENLAFAXINE HCL 75 MG E.R. CAPSULES (FP) PO SCH (10:01)
[2019-03-02] MEDS: metoPROLOL SUCCINATE 25 MG TAB.SR.24H (FP) PO SCH (10:01)
[2019-03-02] MEDS: NICOTINE 14 MG/24 HOURS TOPICAL PATCH TD SCH (10:01)
[2019-03-02] MEDS: THIAMINE HCL 100 MG TABLET (FP) PO SCH (21:13)
[2019-03-02] MEDS: traZODone HCL 50 MG TABLET (FP) PO SCH (21:13)
[2019-03-03] MEDS: BACLOFEN 10 MG TABLET (FP) PO SCH ×3 (06:06→21:24)
[2019-03-03] MEDS: PREGABALIN 100 MG CAPSULE PO SCH ×2 (06:06→18:31)
[2019-03-03] MEDS: NICOTINE 14 MG/24 HOURS TOPICAL PATCH TD SCH (10:16)
[2019-03-03] MEDS: metoPROLOL SUCCINATE 25 MG TAB.SR.24H (FP) PO SCH (10:17)
[2019-03-03] MEDS: VENLAFAXINE HCL 75 MG E.R. CAPSULES (FP) PO SCH (10:17)
[2019-03-03] MEDS: PRENATAL VITAMINS W/ FOLIC ACID TABLET (FP) PO SCH (10:17)
[2019-03-03] MEDS: traZODone HCL 50 MG TABLET (FP) PO SCH (21:24)
[2019-03-03] MEDS: MELATONIN 5 MG TABLETS PO PRN (21:25)
[2019-03-03] MEDS: THIAMINE HCL 100 MG TABLET (FP) PO SCH (21:25)
[2019-03-04] MEDS: PREGABALIN 100 MG CAPSULE PO SCH ×2 (06:28→17:06)
[2019-03-04] MEDS: BACLOFEN 10 MG TABLET (FP) PO SCH ×3 (06:28→21:15)
[2019-03-04] MEDS: VENLAFAXINE HCL 75 MG E.R. CAPSULES (FP) PO SCH (09:57)
[2019-03-04] MEDS: PRENATAL VITAMINS W/ FOLIC ACID TABLET (FP) PO SCH (09:58)
[2019-03-04] MEDS: metoPROLOL SUCCINATE 25 MG TAB.SR.24H (FP) PO SCH (09:58)
[2019-03-04] MEDS: NICOTINE 14 MG/24 HOURS TOPICAL PATCH TD SCH (09:58)
[2019-03-04] MEDS: MELATONIN 5 MG TABLETS PO PRN (21:15)
[2019-03-04] MEDS: traZODone HCL 50 MG TABLET (FP) PO SCH (21:15)
[2019-03-04] MEDS: THIAMINE HCL 100 MG TABLET (FP) PO SCH (21:15)
[2019-03-05] MEDS: BACLOFEN 10 MG TABLET (FP) PO SCH ×3 (06:36→22:03)
[2019-03-05] MEDS: PREGABALIN 100 MG CAPSULE PO SCH ×2 (06:36→18:44)
[2019-03-05] MEDS: PRENATAL VITAMINS W/ FOLIC ACID TABLET (FP) PO SCH (10:09)
[2019-03-05] MEDS: VENLAFAXINE HCL 75 MG E.R. CAPSULES (FP) PO SCH (10:09)
[2019-03-05] MEDS: NICOTINE 14 MG/24 HOURS TOPICAL PATCH TD SCH (10:10)
[2019-03-05] MEDS: metoPROLOL SUCCINATE 25 MG TAB.SR.24H (FP) PO SCH (10:11)
[2019-03-05] MEDS: traZODone HCL 50 MG TABLET (FP) PO SCH (22:03)
[2019-03-05] MEDS: THIAMINE HCL 100 MG TABLET (FP) PO SCH (22:03)
[2019-03-05] MEDS: MELATONIN 5 MG TABLETS PO PRN (22:04)
[2019-03-05] MEDS: IBUPROFEN 400 MG TABLET (FP) PO PRN (22:04)
[2019-03-06] MEDS: BACLOFEN 10 MG TABLET (FP) PO SCH ×3 (06:34→21:33)
[2019-03-06] MEDS: PREGABALIN 100 MG CAPSULE PO SCH ×2 (06:34→18:13)
[2019-03-06] MEDS: PRENATAL VITAMINS W/ FOLIC ACID TABLET (FP) PO SCH (10:16)
[2019-03-06] MEDS: NICOTINE 14 MG/24 HOURS TOPICAL PATCH TD SCH (10:16)
[2019-03-06] MEDS: VENLAFAXINE HCL 75 MG E.R. CAPSULES (FP) PO SCH (10:16)
[2019-03-06] MEDS: metoPROLOL SUCCINATE 25 MG TAB.SR.24H (FP) PO SCH (10:17)
[2019-03-06] MEDS: THIAMINE HCL 100 MG TABLET (FP) PO SCH (21:33)
[2019-03-06] MEDS: traZODone HCL 50 MG TABLET (FP) PO SCH (21:33)
[2019-03-06] MEDS: MELATONIN 5 MG TABLETS PO PRN (21:34)
[2019-03-07] MEDS: BACLOFEN 10 MG TABLET (FP) PO SCH ×3 (06:21→21:15)
[2019-03-07] MEDS: PREGABALIN 100 MG CAPSULE PO SCH ×2 (06:21→18:01)
[2019-03-07] MEDS: VENLAFAXINE HCL 75 MG E.R. CAPSULES (FP) PO SCH (10:35)
[2019-03-07] MEDS: metoPROLOL SUCCINATE 25 MG TAB.SR.24H (FP) PO SCH (10:35)
[2019-03-07] MEDS: PRENATAL VITAMINS W/ FOLIC ACID TABLET (FP) PO SCH (10:35)
[2019-03-07] MEDS: NICOTINE 14 MG/24 HOURS TOPICAL PATCH TD SCH (10:36)
[2019-03-07] MEDS: THIAMINE HCL 100 MG TABLET (FP) PO SCH (21:15)
[2019-03-07] MEDS: traZODone HCL 50 MG TABLET (FP) PO SCH (21:15)
[2019-03-07] MEDS: MELATONIN 5 MG TABLETS PO PRN (21:15)
[2019-03-08] MEDS: BACLOFEN 10 MG TABLET (FP) PO SCH ×3 (06:00→21:14)
[2019-03-08] MEDS: PREGABALIN 100 MG CAPSULE PO SCH ×2 (06:00→17:41)
[2019-03-08] MEDS: PRENATAL VITAMINS W/ FOLIC ACID TABLET (FP) PO SCH (10:32)
[2019-03-08] MEDS: NICOTINE 14 MG/24 HOURS TOPICAL PATCH TD SCH (10:32)
[2019-03-08] MEDS: VENLAFAXINE HCL 75 MG E.R. CAPSULES (FP) PO SCH (10:32)
[2019-03-08] MEDS: metoPROLOL SUCCINATE 25 MG TAB.SR.24H (FP) PO SCH (10:33)
--- NOTE | 2019-03-08 15:40 | PN ---
S Progress Note Note: PT C/O EAR PAIN WITH EAR DRAINAGE X 1 WEEK. REPORTS HE HAD SIMILAR PROBLEM BUT WAS GIVE EAR DROPS. Vital Signs (72 hours) 03/06/19 03/06/19 03/06/19 00:30 03:30 07:09 Temperature 98.3 F Pulse Rate 77 Respiratory 18 18 18 Rate Blood Pressure 103/80 03/06/19 03/06/19 03/07/19 09:10 10:10 00:30 Temperature Pulse Rate 57 L 83 Respiratory 18 16 18 Rate Blood Pressure 103/62 116/55 L 03/07/19 03/07/19 03/08/19 03:30 06:32 00:30 Temperature 97.5 F L Pulse Rate 75 Respiratory 18 19 18 Rate Blood Pressure 130/72 03/08/19 03/08/19 03:30 06:31 Temperature 97.9 F Pulse Rate 71 Respiratory 18 18 Rate Blood Pressure 127/72 EAR EXAM:RIGHT EAR WITH REDNESS AND BULGING TM, PUS LOOKING DRAINAGE. A:OTITIS MEDIA PLAN:AMOXICILLIN 500 MG PO TID X 10 DAYS, FIRST DOSE NOW CORTISPORIN OTIC DROPS 4 GTTS TO RIGHT EAR Q6H
[2019-03-08] MEDS ORDERED: AMOXICILLIN 500 MG CAPSULE (FP) PO ONE (16:45)
[2019-03-08] MEDS: NEOMYCIN/POLYMYXN/HC OTIC SOLUTION 10 ML BOTTLE AD SCH (17:42)
[2019-03-08] MEDS: THIAMINE HCL 100 MG TABLET (FP) PO SCH (21:14)
[2019-03-08] MEDS: AMOXICILLIN 500 MG CAPSULE (FP) PO SCH (21:14)
[2019-03-08] MEDS: traZODone HCL 50 MG TABLET (FP) PO SCH (21:14)
[2019-03-08] MEDS: MELATONIN 5 MG TABLETS PO PRN (21:15)
[2019-03-08] MEDS ORDERED: AMOXICILLIN 500 MG CAPSULE (FP) PO SCH (22:00)
[2019-03-09] MEDS: NEOMYCIN/POLYMYXN/HC OTIC SOLUTION 10 ML BOTTLE AD SCH ×5 (00:34→23:44)
[2019-03-09] MEDS: AMOXICILLIN 500 MG CAPSULE (FP) PO SCH ×3 (06:05→21:47)
[2019-03-09] MEDS: BACLOFEN 10 MG TABLET (FP) PO SCH ×3 (06:05→21:47)
[2019-03-09] MEDS: PREGABALIN 100 MG CAPSULE PO SCH ×2 (06:06→17:41)
[2019-03-09] MEDS: VENLAFAXINE HCL 75 MG E.R. CAPSULES (FP) PO SCH (10:22)
[2019-03-09] MEDS: metoPROLOL SUCCINATE 25 MG TAB.SR.24H (FP) PO SCH (10:22)
[2019-03-09] MEDS: PRENATAL VITAMINS W/ FOLIC ACID TABLET (FP) PO SCH (10:22)
[2019-03-09] MEDS: NICOTINE 14 MG/24 HOURS TOPICAL PATCH TD SCH (10:23)
[2019-03-09] MEDS: THIAMINE HCL 100 MG TABLET (FP) PO SCH (21:47)
[2019-03-09] MEDS: traZODone HCL 50 MG TABLET (FP) PO SCH (21:47)
[2019-03-09] MEDS: MELATONIN 5 MG TABLETS PO PRN (21:47)
[2019-03-10] MEDS: AMOXICILLIN 500 MG CAPSULE (FP) PO SCH (06:20)
[2019-03-10] MEDS: PREGABALIN 100 MG CAPSULE PO SCH (06:20)
[2019-03-10] MEDS: BACLOFEN 10 MG TABLET (FP) PO SCH (06:20)
[2019-03-10] MEDS: NEOMYCIN/POLYMYXN/HC OTIC SOLUTION 10 ML BOTTLE AD SCH (06:21)
[2019-03-10 06:31] VITALS: BP 121/73; PULSE 76; TEMP 97.4
--- NOTE | 2019-03-10 09:40 | PN ---
[facility] Progress Note Note: PT COMPLETED REHAB AND DISCHARGED TODAY. PT MET WITH HIS COUNSELOR AND HAS BEEN REFERRED TO [facility] [address] [place], [place] FOR CD AFTERCARE TREATMENT. PT REPORTS HE HAS A PCP DR. SARA BAGLEY AT [facility] ON [address] [place], [place] FOR MEDICAL MANAGEMENT. PT REPORTS HE HAS OWN MEDS IN THE [facility]. ALERT O X 3. DENIES S/H/I. Home Medications Medication Instructions Recorded Baclofen 10 mg PO BID 12/10/18 Metoprolol Succinate [Toprol Xl] 12.5 mg PO DAILY 12/10/18 Pregabalin [Lyrica] 300 mg PO BID 12/10/18 Venlafaxine HCl [Effexor -] 225 mg PO DAILY 12/10/18 Albuterol Sulfate [Proair Hfa] 2 puff IH Q4H PRN 02/21/19 Amoxicillin - [Amoxicillin 500mg 500 mg PO TID #21 capsule 03/10/19 Capsule -] Venlafaxine HCl ER [Effexor Xr -] 225 mg PO DAILY #90 cap.er.24h 03/10/19 traZODone HCL [Desyrel -] 50 mg PO HS #30 tablet 03/10/19 Vital Signs - 24 hr 03/10/19 03/10/19 03/10/19 00:30 03:30 06:30 Temperature 97.4 F L Pulse Rate 76 Respiratory 18 18 18 Rate Blood Pressure 121/73 Laboratory Tests 02/15/19 02/15/19 02/15/19 07:00 07:00 07:00 WBC 7.8 RBC 4.98 Hgb 16.9 Hct 49.8 H MCV 99.9 H MCH 33.9 H MCHC 34.0 RDW 14.4 Plt Count 218 MPV 9.4 Sodium 141 Potassium 4.4 Chloride 106 Carbon Dioxide 31 Anion Gap 4 L BUN 14 Creatinine 0.9 Creat Clearance w eGFR 86.08 Random Glucose 113 H Calcium 9.3 Total Bilirubin 0.8 AST 16 ALT 26 Alkaline Phosphatase 80 Total Protein 6.3 L Albumin 3.4 RPR Titer Nonreactive NAD MEDICALLY STABLE PLAN:FOLLOW UP WITH CD AFTERCARE RECOMMENDATION ABOVE. FOLLOW UP WITH YOUR PCP WITHIN 1-2 WEEKS AFTER DISCHARGE. PT REMINDED: COMPLETE ALL COURSE OF ANTIBIOTICS DIRECTED FOR YOUR EAR INFECTION.
--- NOTE | 2019-03-10 09:45 | PN ---
[facility] Progress Note Note: Patient is discharged today. Scripts for 30 days supply of his medications( Effexor XR 225 mg/d, Trazadone 50 mg/hs) are electronically transmitted to [facility] at [address] [place], [place] [id number]
[2019-03-10] MEDS: PRENATAL VITAMINS W/ FOLIC ACID TABLET (FP) PO SCH (10:01)
[2019-03-10] MEDS: metoPROLOL SUCCINATE 25 MG TAB.SR.24H (FP) PO SCH (10:01)
[2019-03-10] MEDS: VENLAFAXINE HCL 75 MG E.R. CAPSULES (FP) PO SCH (10:01)
[2019-03-10] MEDS: NICOTINE 14 MG/24 HOURS TOPICAL PATCH TD SCH (10:02)
[2019-03-10] MEDS ORDERED: ALBUTEROL SO4 2.5/IPRATROPIUM 0.5 INH SOL 3 ML VIAL.NEB. NEB PRN (11:36)
== END 2019-03-10 11:34 | disposition home or self-care (01) | DRG 895 ==
LOC: YASAS 20:17 → Y6N 02-14 00:08 → Y5N 02-18 15:17
PROVIDERS: ADMIT Surgery; ATTEND Neuromusculoskeletal Medicine & OMM
PROC: HZ2ZZZZ Detoxification Services for Substance Abuse Treatment (ICD-10-PCS; 2019-02-14)
PROC: HZ42ZZZ Group Counseling for Substance Abuse Treatment, Cognitive-Behavioral (ICD-10-PCS; principal; 2019-02-18)
DX: F10.20 Alcohol dependence, uncomplicated (principal); F33.9 Major depressive disorder, recurrent, unspecified; F10.24 Alcohol dependence with alcohol-induced mood disorder; F10.282 Alcohol dependence with alcohol-induced sleep disorder; F17.210 Nicotine dependence, cigarettes, uncomplicated; J44.9 Chronic obstructive pulmonary disease, unspecified; I10 Essential (primary) hypertension; G40.909 Epilepsy, unspecified, not intractable, without status epilepticus; M54.5 Low back pain; M12.9 Arthropathy, unspecified; H65.01 Acute serous otitis media, right ear
CPT/HCPCS: 36415; 80053; 85027; 86593; 93005; 93010; 94640; J0475

== ENCOUNTER 2019-03-15 14:48 | Inpatient (IN) | payer OTHER ==
[2019-03-15 15:20] VITALS: BMI 32.3
--- NOTE | 2019-03-15 19:29 | HP ---
CIWA Score Nausea/Vomitin Muscle Tremors: 4-Moderate,w/Arms Extend Anxiety: 4-Mod. Anxious/Guarded Agitation: 1-Slight > Activity Paroxysmal Sweats: 2 Orientation: 0-Oriented Tacttile Disturbances: 0-None Auditory Disturbances: 0-None Visual Disturbances: 0-None Headache: 0-None Present CIWA-Ar Total Score: 14 - Admission Criteria OASAS Guidelines: Admission for Medically Managed Detox: Requires at least one of the followin. CIWA greater than 12 2. Seizures within the past 24 hours 3. Delirium tremens within the past 24 hours 4. Hallucinations within the past 24 hours 5. Acute intervention needed for co occurring medical disorder 6. Acute intervention needed for co occurring psychiatric disorder 7. Severe withdrawal that cannot be handled at a lower level of care (continued vomiting, continued diarrhea, abnormal vital signs) requiring intravenous medication and/or fluids 8. Patient presents the following: CIWA greater than 12 (Current LATONIA 0.123 down from 0.176.) Admission Criteria Met: Admission criteria met Admission ROS S - [facility] Chief Complaint: Shaking. Having alcohol withdrawals Allergies/Adverse Reactions: Allergies Allergy/AdvReac Type Severity Reaction Status Date / Time No Known Allergies Allergy Verified 03/15/19 15:28 History of Present Illness: Presents for detox w/ AOB, unsteady gait and a LATONIA of 0.176. Monitored and given water over 5 hours and current LATONIA = 0.123. Discharged from [facility] on 03/10/19, after 25 days. [facility] began drinking on same day discharged. Alcohol use began at age [age]. Stats been drinking over 1 pint vodka over last 5 days. Nicotine use began at age 13. PMHx:Hypertension, COPD, Back pain, Arthritis and Seizures- petit-mal (States takes Lyrica for seizures) 02/14/19 EKG: Normal w/ NSR. MMHx: Depression. Denies suicide attempt or suicidal ideation at this time. [facility] PCP is treating MH issues. Patient Name: Imtiaz Rizvi Date: 1960 Address: [place] [address] Sex: Male Rx Written Rx Dispensed Drug Quantity Days Supply Prescriber Name 10/14/2018 03/10/2019 lyrica 300 mg capsule 60 30 Yue Thakkar 10/14/2018 02/04/2019 lyrica 300 mg capsule 60 30 Polyakova, Yue 10/14/2018 01/06/2019 lyrica 300 mg capsule 60 30 Polyakova, Yue 10/14/2018 12/06/2018 lyrica 300 mg capsule 60 30 Polyakova, Yue 10/14/2018 11/05/2018 lyrica 300 mg capsule 60 60 Polyakova, Yue 10/05/2018 10/08/2018 lyrica 300 mg capsule 60 30 Randy Panda MD Patient Name: Imtiaz Rizvi Date: 1960 Address: [address] [place] [address] Sex: Male Rx Written Rx Dispensed Drug Quantity Days Supply Prescriber Name 09/01/2018 09/02/2018 lyrica 300 mg capsule 60 30 Randy Panda MD 08/05/2018 08/06/2018 lyrica 300 mg capsule 60 30 Randy Panda MD 07/05/2018 07/06/2018 lyrica 300 mg capsule 60 30 Randy Panda MD 06/03/2018 06/07/2018 lyrica 300 mg capsule 60 30 Randy Panda MD 05/10/2018 05/11/2018 lyrica 300 mg capsule 60 30 Randy Panda MD Exam Limitations: No Limitations - Ebola screening Have you traveled outside of the country in the last 21 days: No (N) Have you had contact with anyone from an Ebola affected area: No Have you been sick,other than usual withdrawal symptoms: No (Denies recent measles exposure) Do you have a fever: No - Review of Systems Constitutional: Chills, Diaphoresis EENT: reports: Blurred Vision Respiratory: reports: No Symptoms reported Cardiac: reports: No Symptoms Reported GI: reports: Nausea : reports: Other (Difficulty starting flow. Denies burning, pain, or blood w/ urination.) Musculoskeletal: reports: Back Pain (Chronic achy low back pain increases w/ walking. Improves w/ sitting/resting. Denies pain at this time.) Integumentary: reports: No Symptoms Reported Neuro: reports: Seizure (Frequent petit-mal seizures - take Lyrica for control.) , Tingling (In toes of both - intermittent), Tremors, Weakness (both lower extrmities r/t back issues.) Endocrine: reports: No Symptoms Reported Hematology: reports: No Symptoms Reported Psychiatric: reports: Orientated x3, Agitated, Anxious, Depressed (Denies thoughts of harming self or others.) Other Systems: Reviewed and Negative Patient History - Patient Medical History Hx Anemia: No Hx Asthma: No Hx Chronic Obstructive Pulmonary Disease (COPD): Yes Hx Cancer: No Hx Cardiac Disorders: No Hx Congestive Heart Failure: No Hx Hypertension: Yes Hx Hypercholesterolemia: No Hx Pacemaker: No HX Cerebrovascular Accident: No Hx Seizures: Yes (Lyrica) Hx Dementia: No Hx Diabetes: No Hx Gastrointestinal Disorders: No Hx Liver Disease: No Hx Genitourinary Disorders: No Hx Sexually Transmitted Disorders: Yes (16 yr- Tx for Gonorrhea) Hx Renal Disease (ESRD): No Hx Thyroid Disease: No Hx Human Immunodeficiency Virus (HIV): No Hx Hepatitis C: No Hx Depression: Yes Hx Suicide Attempt: No Hx Schizophrenia: No - Patient Surgical History Past Surgical History: Yes Hx Neurologic Surgery: No Hx Cataract Extraction: No Hx Cardiac Surgery: No Hx Lung Surgery: No Hx Breast Surgery: No Hx Breast Biopsy: No Hx Abdominal Surgery: No Hx Appendectomy: No Hx Cholecystectomy: No Hx Genitourinary Surgery: No Hx Orthopedic Surgery: Yes (ARTHROSCOPY RIGHT AND LEFT KNEE) Anesthesia Reaction: No - PPD History Previous Implant?: Yes Documented Results: Negative w/proof Implanted On Prior [facility] Admission?: Yes Date: 02/16/19 Results: 0mm PPD to be Administered?: No - Smoking Cessation Smoking history: Current every day smoker Have you smoked in the past 12 months: Yes Aproximately how many cigarettes per day: 20 Hx Chewing Tobacco Use: No Initiated information on smoking cessation: Yes 'Breaking Loose' booklet given: 03/15/19 - Substance & Tx. History Hx Alcohol Use: Yes Hx Substance Use: Yes Substance Use Type: Alcohol Hx Substance Use Treatment: Yes (detox, rehab ) - Substances abused Alcohol Frequency: Daily Amount used: 1-2 pints vodka Age of first use: 13 Date of last use: 03/15/19 Admission Physical Exam [facility] - Vital Signs Vital Signs: Vital Signs - 24 hr 03/15/19 15:10 Temperature 97.6 F Pulse Rate 112 H Respiratory 20 Rate Blood Pressure 133/80 - Physical General Appearance: Yes: Nourished, Mild Distress, Alcohol on Breath, Intoxicated (Was intoxicated upon arrival. Now vastly improved.), Obese, Tremorous, Sweating, Anxious HEENTM: Yes: EOMI (Jerking movements of eyes upon (L) lateral gaze.), Hearing grossly Normal, Normocephalic, Normal Voice, SAQIB, Pharynx Normal Respiratory: Yes: Lungs Clear, Normal Breath Sounds, No Respiratory Distress Neck: Yes: No masses,lesions,Nodules, Supple Breast: Yes: Breast Exam Deferred Cardiology: Yes: Regular Rhythm, Regular Rate, S1, S2 Abdominal: Yes: Non Tender, Soft, Increased Bowel Sounds, Protuberent ( Increased abdominal adiposity) Genitourinary: Yes: Within Normal Limits Back: Yes: Within Normal Limits Musculoskeletal: Yes: full range of Motion, Joint Stiffness Extremities: Yes: Normal Capillary Refill, Tremors (Gross tremors at rest) Neurological: Yes: seafood specialist II-XII NML intact (Jerking movements of eyes upon (L) lateral gaze.), Fully Oriented, Motor Strength 5/5 Integumentary: Yes: Normal Color, Warm, Diaphoresis Lymphatic: Yes: Within Normal Limits - Diagnostic (1) History of COPD Current Visit: Yes Status: Chronic (2) History of seizures Current Visit: Yes Status: Chronic Comment: States on Lyrica for petit-mal seizures. (3) History of chronic back pain Current Visit: Yes Status: Chronic (4) Alcohol dependence with uncomplicated withdrawal Current Visit: Yes Status: Acute (5) Arthritis Current Visit: Yes Status: Chronic (6) Hypertension Current Visit: Yes Status: Chronic Qualifiers: Hypertension type: essential hypertension Qualified Code(s): I10 - Essential (primary) hypertension (7) Nicotine dependence Current Visit: Yes Status: Chronic Qualifiers: Nicotine product type: cigarettes Substance use status: uncomplicated Qualified Code(s): F17.210 - Nicotine dependence, cigarettes, uncomplicated (8) Obesity (BMI 30.0-34.9) Current Visit: Yes Status: Chronic Cleared for Admission S - Detox or Rehab [facility] Level of Care: Medically Managed Detox Regimen/Protocol: Librium Claeared for Rehab Admission: No Breathalyzer - Breathalyzer Breathalyzer: 0.176 Urine Drug Screen - Test Device Lot number: [id number] Expiration date: 10/15/20 - Control Is test valid?: Yes - Results Urine drug screen results: MTD-Methadone, BUP-Suboxone Inpatient Rehab Admission - Rehab Decision to Admit Inpatient rehab admission?: No
[2019-03-15] MEDS ORDERED: chlordiazePOXIDE HCL 25 MG CAPSULE PO PRN (20:20)
[2019-03-15] MEDS ORDERED: chlordiazePOXIDE HCL 25 MG CAPSULE PO ONE (20:20)
[2019-03-15] MEDS ORDERED: BISMUTH SUBSALICYLATE 524 MG/30 ML UD PO PRN (20:21)
[2019-03-15] MEDS ORDERED: ONDANSETRON *ODT* 4 MG TABLET SL PRN (20:21)
[2019-03-15] MEDS ORDERED: MAGNESIUM HYDROX 2400MG/30ML ORAL SUSPENSION 30 ML CUP PO PRN (20:21)
[2019-03-15] MEDS ORDERED: MAG HYDROX/AL HYDROX/SIMETH 30 ML UNIT-DOSE CUP PO PRN (20:21)
[2019-03-15] MEDS ORDERED: METHOCARBAMOL 500 MG TABLET PO PRN (20:21)
[2019-03-15] MEDS ORDERED: guaiFENesin 200 MG/10 ML 10 ML UNIT-DOSE CUPS PO PRN (20:21)
[2019-03-15] MEDS ORDERED: ACETAMINOPHEN 325 MG TABLET (FP) PO PRN ×2 (20:21)
[2019-03-15] MEDS ORDERED: MENTHOL/PHENOL 1 EACH UD MM PRN (20:21)
[2019-03-15] MEDS ORDERED: MAGNESIUM CITRATE 300 ML BOTTLE PO PRN (20:21)
[2019-03-15] MEDS ORDERED: NICOTINE POLACRILEX 2 MG GUM BUC PRN (20:21)
[2019-03-15] MEDS ORDERED: traZODone HCL 50 MG TABLET (FP) PO ONE (20:24)
[2019-03-15] MEDS ORDERED: ALBUTEROL SO4 8 GM HFA INHALER IH PRN (20:25)
[2019-03-15] MEDS: PREGABALIN 100 MG CAPSULE PO SCH (21:35)
[2019-03-15] MEDS: BACLOFEN 10 MG TABLET (FP) PO SCH (21:35)
[2019-03-15] MEDS: THIAMINE HCL 100 MG TABLET (FP) PO SCH (21:36)
[2019-03-15] MEDS: chlordiazePOXIDE HCL 25 MG CAPSULE PO SCH (22:18)
[2019-03-16 00:53] LABS: EPI CELLS 2.5 /HPF (0-5/HPF); URINE APPEARANCE TURBID; URINE BACTERIA 4.6 /hpf (NEGATIVE); URINE BILIRUBIN NEGATIVE (NEGATIVE); URINE CASTS 17 /lpf (0-8); URINE COLOR YELLOW; URINE GLUCOSE (UA) NEGATIVE (NEGATIVE); URINE KETONE TRACE (NEGATIVE); URINE LEUK ESTERASE NEGATIVE (NEGATIVE); URINE NITRITE NEGATIVE (NEGATIVE); URINE PROTEIN 1+ (NEGATIVE); URINE RBC 6 /hpf (0-4); URINE UROBILINOGEN 0.2 mg/dL (0.2-1.0); URINE WBC 3 /hpf (0-5)
[2019-03-16 03:23] LABS: URINE CRYSTALS CA OXALATE /hpf
[2019-03-16] MEDS: chlordiazePOXIDE HCL 25 MG CAPSULE PO SCH ×4 (05:16→22:05)
--- NOTE | 2019-03-16 09:28 | PN ---
[facility] CIWA - CIWA Score Nausea/Vomitin-Mild Nausea/No Vomiting Muscle Tremors: 4-Moderate,w/Arms Extend Anxiety: 3 Agitation: 3 Paroxysmal Sweats: 1-Minimal Palms Moist Orientation: 3-Disoriented Date>2 days Tacttile Disturbances: 0-None Auditory Disturbances: 0-None Visual Disturbances: 0-None Headache: 2-Mild CIWA-Ar Total Score: 17 BHS Progress Note (SOAP) Subjective: tremor received librium 50 mg and prn 25 mg po patient has long history of alcohol misuse intoxicated upon admission Objective: 03/16/19 09:31 Vital Signs Temperature 97.2 F L 03/16/19 09:23 Pulse Rate 97 H 03/16/19 09:23 Respiratory Rate 18 03/16/19 09:23 Blood Pressure 110/72 03/16/19 09:23 O2 Sat by Pulse Oximetry (%) Laboratory Last Values Urine Color Yellow 03/15/19 23:10 Urine Appearance Turbid 03/15/19 23:10 Urine pH 5.0 (5.0-8.0) 03/15/19 23:10 Ur Specific [place] 1.026 (1.010-1.035) 03/15/19 23:10 Urine Protein 1+ (NEGATIVE) H 03/15/19 23:10 Urine Glucose (UA) Negative (NEGATIVE) 03/15/19 23:10 Urine Ketones Trace (NEGATIVE) H 03/15/19 23:10 Urine Blood Negative (NEGATIVE) 03/15/19 23:10 Urine Nitrite Negative (NEGATIVE) 03/15/19 23:10 Urine Bilirubin Negative (NEGATIVE) 03/15/19 23:10 Urine Urobilinogen 0.2 mg/dL (0.2-1.0) 03/15/19 23:10 Ur Leukocyte Esterase Negative (NEGATIVE) 03/15/19 23:10 Urine WBC (Auto) 3 /hpf (0-5) 03/15/19 23:10 Urine RBC (Auto) 6 /hpf (0-4) 03/15/19 23:10 Urine Casts (Auto) 17 /lpf (0-8) 03/15/19 23:10 U Epithel Cells (Auto) 2.5 /HPF (0-5/HPF) 03/15/19 23:10 Urine Crystals (Auto) Ca oxalate /hpf 03/15/19 23:10 Urine Bacteria (Auto) 4.6 /hpf (NEGATIVE) 03/15/19 23:10 lab pending Assessment: 03/16/19 09:32 withdrawal sx Plan: continue detox librium 50 mg po at 2 pm
[2019-03-16] MEDS: PREGABALIN 100 MG CAPSULE PO SCH ×2 (10:17→22:05)
[2019-03-16] MEDS: PRENATAL VITAMINS W/ FOLIC ACID TABLET (FP) PO SCH (10:18)
[2019-03-16] MEDS: NICOTINE 21 MG/24 HOURS TOPICAL PATCH TD SCH (10:18)
[2019-03-16] MEDS: metoPROLOL SUCCINATE 25 MG TAB.SR.24H (FP) PO SCH (10:18)
[2019-03-16] MEDS: BACLOFEN 10 MG TABLET (FP) PO SCH ×2 (10:18→22:05)
[2019-03-16 10:27] LABS: HEMATOCRIT 44.3 % (35.4-49); HEMOGLOBIN 15.2 GM/dL (11.7-16.9); MCH 33.8 pg (25.7-33.7); MCHC 34.4 g/dl (32.0-35.9); MEAN CELL VOLUME 98.4 fl (80-96); MEAN PLT VOLUME 9.4 fl (7.5-11.1); PLATELET COUNT 228 K/MM3 (134-434); RDW 14.6 % (11.9-15.9); WHITE BLOOD COUNT 10.4 K/mm3 (4.0-10.0)
[2019-03-16 10:30] LABS: ALBUMIN 3.3 g/dl (3.4-5.0); ALK PHOS 84 U/L (45-117); ANION GAP 6 MMOL/L (8-16); BILIRUBIN,TOTAL 1.1 mg/dL (0.2-1); BLOOD UREA NITROGEN 14 mg/dL (7-18); CALCIUM 8.5 mg/dL (8.5-10.1); CHLORIDE 102 mmol/L (98-107); CO2 33 mmol/L (21-32); CREATININE 0.7 mg/dL (0.55-1.3); GLUCOSE,RANDOM 84 mg/dL (74-106); POTASSIUM 3.8 mmol/L (3.5-5.1); SGOT/AST 31 U/L (15-37); SGPT/ALT 34 U/L (13-61); SODIUM 142 mmol/L (136-145)
[2019-03-16] MEDS ORDERED: chlordiazePOXIDE HCL 25 MG CAPSULE PO ONE (14:00)
--- NOTE | 2019-03-16 17:40 | CONSULT ---
[facility] Psychiatric Consult - Data Date of interview: 03/16/19 Admission source: [facility] Identifying data: Patient is a 58 year old single male, father of two, unemployed, homeless, and is supported by [facility]. This is one of multiple admissions for patient. Patient admitted to for alcohol dependence. Substance Abuse History: Smoking Cessation. Smoking history: Current every day smoker. Have you smoked in the past 12 months: Yes. Aproximately how many cigarettes per day: 20. Hx Chewing Tobacco Use: No. Initiated information on smoking cessation: Yes. 'Breaking Loose' booklet given: 03/15/19. - Substance & Tx. History. Hx Alcohol Use: Yes. Hx Substance Use: Yes. Substance Use Type : Alcohol. Hx Substance Use Treatment: Yes (detox, rehab ). - Substances abused. Alcohol. Frequency: Daily. Amount used: 1-2 pints vodka. Age of first use: 13. Date of last use: 03/15/19 Medical History: Significant for COPD, hypertension, back pain, arthritis, history of seizure disorder and arthroscopic surgery both knees Psychiatric History: Patient's first psychiatric contact was approximately 4 years ago. He reports seeing a psychiatrist at a private clinic. Mr. Rizvi was diagnosed with depression and was prescribed effexor. He denies h/o psychiatric hospitalization, and suicide attempts. Patient does not have an outpatient psychiatrist but continues to receive prescriptions of effexor 225 XR by his PCP. Patient was admitted to detox/rehab from 02/14- 03/[address] Bell. At present, patient reports difficulty sleeping and is requesting to resume medications. Physical/Sexual Abuse/Trauma History: Denies. Mental Status Exam - Mental Status Exam Alert and Oriented to: Time, Place, Person Cognitive Function: Good Patient Appearance: Well Groomed Mood: Withdrawn Affect: Mood Congruent Patient Behavior: Cooperative Speech Pattern: Appropriate Voice Loudness: Moderately Soft/Quiet Thought Process: Goal Oriented Thought Disorder: Not Present Hallucinations: Denies Suicidal Ideation: Denies Homicidal Ideation: Denies Insight/Judgement: Poor Sleep: Poorly Appetite: Fair Muscle strength/Tone: Normal Gait/Station: Normal Psychiatric Findings - Problem List ([place] 1, 2,3) (1) Alcohol dependence with uncomplicated withdrawal Current Visit: Yes Status: Acute (2) Nicotine dependence Current Visit: Yes Status: Chronic Qualifiers: Nicotine product type: cigarettes Substance use status: uncomplicated Qualified Code(s): F17.210 - Nicotine dependence, cigarettes, uncomplicated (3) Alcohol-induced mood disorder Current Visit: Yes Status: Acute (4) Alcohol-induced sleep disorder Current Visit: Yes Status: Acute (5) MDD (major depressive disorder) Current Visit: Yes Status: Chronic - Initial Treatment Plan Initial Treatment Plan: Psychoeducation provided. Detoxification in progress. Will order Effexor 225mg XR + trazodone 50mg HS. Benefits and side effects discussed. Verbal consent given.
[2019-03-16] MEDS: traZODone HCL 50 MG TABLET (FP) PO SCH (22:05)
[2019-03-16] MEDS: THIAMINE HCL 100 MG TABLET (FP) PO SCH (22:05)
[2019-03-17] MEDS: chlordiazePOXIDE HCL 25 MG CAPSULE PO SCH ×3 (05:31→16:49)
[2019-03-17] MEDS: VENLAFAXINE HCL 75 MG E.R. CAPSULES (FP) PO SCH (07:13)
[2019-03-17] MEDS ORDERED: chlordiazePOXIDE HCL 25 MG CAPSULE PO ONE (10:00)
[2019-03-17] MEDS: BACLOFEN 10 MG TABLET (FP) PO SCH ×2 (10:34→21:24)
[2019-03-17] MEDS: PREGABALIN 100 MG CAPSULE PO SCH ×2 (10:34→21:24)
[2019-03-17] MEDS: PRENATAL VITAMINS W/ FOLIC ACID TABLET (FP) PO SCH (10:35)
[2019-03-17] MEDS: metoPROLOL SUCCINATE 25 MG TAB.SR.24H (FP) PO SCH (10:35)
[2019-03-17] MEDS: NICOTINE 21 MG/24 HOURS TOPICAL PATCH TD SCH (10:35)
--- NOTE | 2019-03-17 10:56 | PN ---
S CIWA - CIWA Score Nausea/Vomitin-Mild Nausea/No Vomiting Muscle Tremors: 4-Moderate,w/Arms Extend Anxiety: 2 Agitation: 3 Paroxysmal Sweats: 2 Orientation: 2-Disoriented Date<2 days Tacttile Disturbances: 0-None Auditory Disturbances: 0-None Visual Disturbances: 0-None Headache: 0-None Present CIWA-Ar Total Score: 14 [facility] Progress Note (SOAP) Subjective: tremor but able to drink fluid from cup without assistance one dose librium 25 mg with 10 am 25 mg librium Objective: 03/17/19 10:59 Vital Signs Temperature 96.4 F L 03/17/19 09:12 Pulse Rate 111 H 03/17/19 09:12 Respiratory Rate 18 03/17/19 09:12 Blood Pressure 133/79 03/17/19 09:12 O2 Sat by Pulse Oximetry (%) Laboratory Last Values WBC 10.4 K/mm3 (4.0-10.0) H 03/16/19 07:00 RBC 4.50 M/mm3 (4.00-5.60) 03/16/19 07:00 Hgb 15.2 GM/dL (11.7-16.9) 03/16/19 07:00 Hct 44.3 % (35.4-49) 03/16/19 07:00 MCV 98.4 fl (80-96) H 03/16/19 07:00 MCH 33.8 pg (25.7-33.7) H 03/16/19 07:00 MCHC 34.4 g/dl (32.0-35.9) 03/16/19 07:00 RDW 14.6 % (11.9-15.9) 03/16/19 07:00 Plt Count 228 K/MM3 (134-434) 03/16/19 07:00 MPV 9.4 fl (7.5-11.1) 03/16/19 07:00 Manual Slide Review 03/16/19 07:00 Platelet Comment No clumping noted 03/16/19 07:00 Sodium 142 mmol/L (136-145) 03/16/19 07:00 Potassium 3.8 mmol/L (3.5-5.1) 03/16/19 07:00 Chloride 102 mmol/L (98-107) 03/16/19 07:00 Carbon Dioxide 33 mmol/L (21-32) H 03/16/19 07:00 Anion Gap 6 MMOL/L (8-16) L 03/16/19 07:00 BUN 14 mg/dL (7-18) 03/16/19 07:00 Creatinine 0.7 mg/dL (0.55-1.3) 03/16/19 07:00 Creat Clearance w eGFR 115.04 (>60) 03/16/19 07:00 Random Glucose 84 mg/dL (74-106) 03/16/19 07:00 Calcium 8.5 mg/dL (8.5-10.1) 03/16/19 07:00 Total Bilirubin 1.1 mg/dL (0.2-1) H 03/16/19 07:00 AST 31 U/L (15-37) 03/16/19 07:00 ALT 34 U/L (13-61) 03/16/19 07:00 Alkaline Phosphatase 84 U/L (45-117) 03/16/19 07:00 Total Protein 6.0 g/dl (6.4-8.2) L 03/16/19 07:00 Albumin 3.3 g/dl (3.4-5.0) L 03/16/19 07:00 Urine Color Yellow 03/15/19 23:10 Urine Appearance Turbid 03/15/19 23:10 Urine pH 5.0 (5.0-8.0) 03/15/19 23:10 Ur Specific [place] 1.026 (1.010-1.035) 03/15/19 23:10 Urine Protein 1+ (NEGATIVE) H 03/15/19 23:10 Urine Glucose (UA) Negative (NEGATIVE) 03/15/19 23:10 Urine Ketones Trace (NEGATIVE) H 03/15/19 23:10 Urine Blood Negative (NEGATIVE) 03/15/19 23:10 Urine Nitrite Negative (NEGATIVE) 03/15/19 23:10 Urine Bilirubin Negative (NEGATIVE) 03/15/19 23:10 Urine Urobilinogen 0.2 mg/dL (0.2-1.0) 03/15/19 23:10 Ur Leukocyte Esterase Negative (NEGATIVE) 03/15/19 23:10 Urine WBC (Auto) 3 /hpf (0-5) 03/15/19 23:10 Urine RBC (Auto) 6 /hpf (0-4) 03/15/19 23:10 Urine Casts (Auto) 17 /lpf (0-8) 03/15/19 23:10 U Epithel Cells (Auto) 2.5 /HPF (0-5/HPF) 03/15/19 23:10 Urine Crystals (Auto) Ca oxalate /hpf 03/15/19 23:10 Urine Bacteria (Auto) 4.6 /hpf (NEGATIVE) 03/15/19 23:10 RPR Titer Nonreactive (NONREACTIVE) 03/16/19 07:00 lab noted Assessment: 03/17/19 11:00 alcohol withdrawal sx Plan: continue detox
[2019-03-17] MEDS: THIAMINE HCL 100 MG TABLET (FP) PO SCH (21:24)
[2019-03-17] MEDS: traZODone HCL 50 MG TABLET (FP) PO SCH (21:25)
[2019-03-17] MEDS: chlordiazePOXIDE HCL 10 MG CAPSULE PO SCH (22:21)
[2019-03-17] MEDS ORDERED: chlordiazePOXIDE HCL 10 MG CAPSULE PO PRN (23:00)
[2019-03-18] MEDS: chlordiazePOXIDE HCL 10 MG CAPSULE PO SCH ×4 (06:40→22:00)
[2019-03-18] MEDS: VENLAFAXINE HCL 75 MG E.R. CAPSULES (FP) PO SCH (08:05)
[2019-03-18] MEDS: PREGABALIN 100 MG CAPSULE PO SCH ×2 (11:29→22:01)
[2019-03-18] MEDS: NICOTINE 21 MG/24 HOURS TOPICAL PATCH TD SCH (11:29)
[2019-03-18] MEDS: metoPROLOL SUCCINATE 25 MG TAB.SR.24H (FP) PO SCH (11:29)
[2019-03-18] MEDS: BACLOFEN 10 MG TABLET (FP) PO SCH ×2 (11:29→22:00)
[2019-03-18] MEDS: PRENATAL VITAMINS W/ FOLIC ACID TABLET (FP) PO SCH (11:29)
[2019-03-18] MEDS ORDERED: cloNIDine HCL 0.1 MG TABLET PO PRN (14:30)
[2019-03-18] MEDS ORDERED: hydrOXYzine PAMOATE 25 MG CAPSULE (FP) PO PRN (14:30)
--- NOTE | 2019-03-18 14:40 | PN ---
S CIWA - CIWA Score Nausea/Vomitin-No Nausea/No Vomiting Muscle Tremors: 2 Anxiety: 3 Agitation: 3 Paroxysmal Sweats: 1-Minimal Palms Moist Orientation: 0-Oriented Tacttile Disturbances: 0-None Auditory Disturbances: 0-None Visual Disturbances: 0-None Headache: 0-None Present CIWA-Ar Total Score: 9 [facility] Progress Note (SOAP) Subjective: pt states he feels like he is still in withdrawal- day #4 of alcohol detox protocol O: Vital Signs - 24 hr 03/17/19 03/17/19 03/18/19 17:06 21:34 03:30 Temperature 96.9 F L 97.6 F Pulse Rate 89 84 Respiratory 17 18 18 Rate Blood Pressure 106/67 122/77 03/18/19 03/18/19 03/18/19 06:35 09:15 13:43 Temperature 96 F L 96.6 F L 96.1 F L Pulse Rate 80 84 81 Respiratory 16 20 18 Rate Blood Pressure 96/62 123/86 89/60 L Laboratory Tests 03/15/19 03/16/19 03/16/19 23:10 07:00 07:00 WBC 10.4 H RBC 4.50 Hgb 15.2 Hct 44.3 MCV 98.4 H MCH 33.8 H MCHC 34.4 RDW 14.6 Plt Count 228 MPV 9.4 Manual Slide Review Platelet Comment No clumping noted Sodium 142 Potassium 3.8 Chloride 102 Carbon Dioxide 33 H Anion Gap 6 L BUN 14 Creatinine 0.7 Creat Clearance w eGFR 115.04 Random Glucose 84 Calcium 8.5 Total Bilirubin 1.1 H AST 31 ALT 34 Alkaline Phosphatase 84 Total Protein 6.0 L Albumin 3.3 L Urine Color Yellow Urine Appearance Turbid Urine pH 5.0 Ur Specific [place] 1.026 Urine Protein 1+ H Urine Glucose (UA) Negative Urine Ketones Trace H Urine Blood Negative Urine Nitrite Negative Urine Bilirubin Negative Urine Urobilinogen 0.2 Ur Leukocyte Esterase Negative Urine WBC (Auto) 3 Urine RBC (Auto) 6 Urine Casts (Auto) 17 U Epithel Cells (Auto) 2.5 Urine Crystals (Auto) Ca oxalate Urine Bacteria (Auto) 4.6 RPR Titer 03/16/19 07:00 WBC RBC Hgb Hct MCV MCH MCHC RDW Plt Count MPV Manual Slide Review Platelet Comment Sodium Potassium Chloride Carbon Dioxide Anion Gap BUN Creatinine Creat Clearance w eGFR Random Glucose Calcium Total Bilirubin AST ALT Alkaline Phosphatase Total Protein Albumin Urine Color Urine Appearance Urine pH Ur Specific [place] Urine Protein Urine Glucose (UA) Urine Ketones Urine Blood Urine Nitrite Urine Bilirubin Urine Urobilinogen Ur Leukocyte Esterase Urine WBC (Auto) Urine RBC (Auto) Urine Casts (Auto) U Epithel Cells (Auto) Urine Crystals (Auto) Urine Bacteria (Auto) RPR Titer Nonreactive a/p: continue alcohol detox protocol clonidine/vistaril prn for symptomatic treatment
[2019-03-18] MEDS: THIAMINE HCL 100 MG TABLET (FP) PO SCH (22:01)
[2019-03-18] MEDS: traZODone HCL 50 MG TABLET (FP) PO SCH (22:01)
[2019-03-19] MEDS: VENLAFAXINE HCL 75 MG E.R. CAPSULES (FP) PO SCH (07:23)
[2019-03-19] MEDS: chlordiazePOXIDE HCL 10 MG CAPSULE PO SCH ×2 (10:50→22:04)
[2019-03-19] MEDS: BACLOFEN 10 MG TABLET (FP) PO SCH ×2 (10:50→22:04)
[2019-03-19] MEDS: PRENATAL VITAMINS W/ FOLIC ACID TABLET (FP) PO SCH (10:50)
[2019-03-19] MEDS: NICOTINE 21 MG/24 HOURS TOPICAL PATCH TD SCH (10:50)
[2019-03-19] MEDS: PREGABALIN 100 MG CAPSULE PO SCH ×2 (10:50→22:04)
[2019-03-19] MEDS: metoPROLOL SUCCINATE 25 MG TAB.SR.24H (FP) PO SCH (10:50)
[2019-03-19] MEDS: IBUPROFEN 400 MG TABLET (FP) PO PRN (10:53)
--- NOTE | 2019-03-19 12:02 | PN ---
[facility] CIWA - CIWA Score Nausea/Vomitin-No Nausea/No Vomiting Muscle Tremors: 3 Anxiety: 5 Agitation: 2 Paroxysmal Sweats: 3 Orientation: 0-Oriented Tacttile Disturbances: 0-None Auditory Disturbances: 0-None Visual Disturbances: 0-None Headache: 0-None Present CIWA-Ar Total Score: 13 [facility] Progress Note (SOAP) Subjective: PT WAS SEEN SITTING ON HIS BED OVER HIS BREAKFAST TRAY WITH SHIRT OFF. PT C/O TREMORS,SWEATS, FATIGUE AND DIZZINESS. LAST DOSE OF LIBRIUM IS AT 23:00 TONIGHT. Objective: 03/19/19 12:08 Vital Signs 03/19/19 03/19/19 03/19/19 06:12 06:28 09:40 Temperature 96.4 F L 96.2 F L Pulse Rate 86 91 H Respiratory 18 18 18 Rate Blood Pressure 104/70 116/88 Laboratory Tests 03/15/19 03/16/19 03/16/19 23:10 07:00 07:00 WBC 10.4 H RBC 4.50 Hgb 15.2 Hct 44.3 MCV 98.4 H MCH 33.8 H MCHC 34.4 RDW 14.6 Plt Count 228 MPV 9.4 Manual Slide Review Platelet Comment No clumping noted Sodium 142 Potassium 3.8 Chloride 102 Carbon Dioxide 33 H Anion Gap 6 L BUN 14 Creatinine 0.7 Creat Clearance w eGFR 115.04 Random Glucose 84 Calcium 8.5 Total Bilirubin 1.1 H AST 31 ALT 34 Alkaline Phosphatase 84 Total Protein 6.0 L Albumin 3.3 L Urine Color Yellow Urine Appearance Turbid Urine pH 5.0 Ur Specific [place] 1.026 Urine Protein 1+ H Urine Glucose (UA) Negative Urine Ketones Trace H Urine Blood Negative Urine Nitrite Negative Urine Bilirubin Negative Urine Urobilinogen 0.2 Ur Leukocyte Esterase Negative Urine WBC (Auto) 3 Urine RBC (Auto) 6 Urine Casts (Auto) 17 U Epithel Cells (Auto) 2.5 Urine Crystals (Auto) Ca oxalate Urine Bacteria (Auto) 4.6 RPR Titer 03/16/19 07:00 WBC RBC Hgb Hct MCV MCH MCHC RDW Plt Count MPV Manual Slide Review Platelet Comment Sodium Potassium Chloride Carbon Dioxide Anion Gap BUN Creatinine Creat Clearance w eGFR Random Glucose Calcium Total Bilirubin AST ALT Alkaline Phosphatase Total Protein Albumin Urine Color Urine Appearance Urine pH Ur Specific [place] Urine Protein Urine Glucose (UA) Urine Ketones Urine Blood Urine Nitrite Urine Bilirubin Urine Urobilinogen Ur Leukocyte Esterase Urine WBC (Auto) Urine RBC (Auto) Urine Casts (Auto) U Epithel Cells (Auto) Urine Crystals (Auto) Urine Bacteria (Auto) RPR Titer Nonreactive Assessment: 03/19/19 12:08 WITHDRAWAL SX Plan: CONTINUE DETOX INCREASE PO FLUIDS PT INSTRUCTED TO RISE SLOWLY FROM SITTING OR LYING POSITIONS WELL USE HIS CANE FOR AMBULATION ALWAYS. MONITOR PT.FOLLOW UP WITH COUNSELOR FOR AFTERCARE RECOMMENDATION
[2019-03-19] MEDS: THIAMINE HCL 100 MG TABLET (FP) PO SCH (22:04)
[2019-03-19] MEDS: traZODone HCL 50 MG TABLET (FP) PO SCH (22:04)
[2019-03-20] MEDS: VENLAFAXINE HCL 75 MG E.R. CAPSULES (FP) PO SCH (07:30)
--- NOTE | 2019-03-20 08:38 | PN ---
[facility] Progress Note Note: received sustainability communicator noted that the patient needs no add salt diet
[2019-03-20] MEDS: NICOTINE 21 MG/24 HOURS TOPICAL PATCH TD SCH (10:08)
[2019-03-20] MEDS: PRENATAL VITAMINS W/ FOLIC ACID TABLET (FP) PO SCH (10:09)
[2019-03-20] MEDS: PREGABALIN 100 MG CAPSULE PO SCH ×2 (10:10→21:30)
[2019-03-20] MEDS: metoPROLOL SUCCINATE 25 MG TAB.SR.24H (FP) PO SCH (10:11)
[2019-03-20] MEDS: BACLOFEN 10 MG TABLET (FP) PO SCH ×2 (12:28→21:30)
[2019-03-20] MEDS: THIAMINE HCL 100 MG TABLET (FP) PO SCH (21:30)
[2019-03-20] MEDS: traZODone HCL 50 MG TABLET (FP) PO SCH (21:30)
[2019-03-21] MEDS: VENLAFAXINE HCL 75 MG E.R. CAPSULES (FP) PO SCH (08:02)
[2019-03-21] MEDS: IBUPROFEN 400 MG TABLET (FP) PO PRN (11:30)
[2019-03-21] MEDS: PRENATAL VITAMINS W/ FOLIC ACID TABLET (FP) PO SCH (11:31)
[2019-03-21] MEDS: PREGABALIN 100 MG CAPSULE PO SCH ×2 (11:32→21:20)
[2019-03-21] MEDS: NICOTINE 21 MG/24 HOURS TOPICAL PATCH TD SCH (11:39)
[2019-03-21] MEDS: metoPROLOL SUCCINATE 25 MG TAB.SR.24H (FP) PO SCH (11:41)
[2019-03-21] MEDS: BACLOFEN 10 MG TABLET (FP) PO SCH ×2 (15:50→21:20)
[2019-03-21] MEDS: traZODone HCL 50 MG TABLET (FP) PO SCH (21:20)
[2019-03-21] MEDS: MELATONIN 5 MG TABLETS PO PRN (21:20)
[2019-03-21] MEDS: THIAMINE HCL 100 MG TABLET (FP) PO SCH (21:20)
[2019-03-22] MEDS: PREGABALIN 100 MG CAPSULE PO SCH ×2 (06:20→21:17)
[2019-03-22] MEDS: BACLOFEN 10 MG TABLET (FP) PO SCH ×2 (06:20→21:17)
[2019-03-22] MEDS: VENLAFAXINE HCL 75 MG E.R. CAPSULES (FP) PO SCH (07:52)
[2019-03-22] MEDS: PRENATAL VITAMINS W/ FOLIC ACID TABLET (FP) PO SCH (10:19)
[2019-03-22] MEDS: NICOTINE 21 MG/24 HOURS TOPICAL PATCH TD SCH (10:19)
[2019-03-22] MEDS: metoPROLOL SUCCINATE 25 MG TAB.SR.24H (FP) PO SCH (10:19)
[2019-03-22] MEDS: THIAMINE HCL 100 MG TABLET (FP) PO SCH (21:17)
[2019-03-22] MEDS: traZODone HCL 50 MG TABLET (FP) PO SCH (21:18)
[2019-03-22] MEDS: MELATONIN 5 MG TABLETS PO PRN (21:18)
[2019-03-23] MEDS: PREGABALIN 100 MG CAPSULE PO SCH (06:29)
[2019-03-23] MEDS: BACLOFEN 10 MG TABLET (FP) PO SCH (06:29)
[2019-03-23 06:59] VITALS: BP 114/71; PULSE 92; TEMP 97.3
[2019-03-23] MEDS: VENLAFAXINE HCL 75 MG E.R. CAPSULES (FP) PO SCH (07:40)
[2019-03-23] MEDS: PRENATAL VITAMINS W/ FOLIC ACID TABLET (FP) PO SCH (09:56)
[2019-03-23] MEDS: metoPROLOL SUCCINATE 25 MG TAB.SR.24H (FP) PO SCH (09:57)
[2019-03-23] MEDS: NICOTINE 21 MG/24 HOURS TOPICAL PATCH TD SCH (09:59)
--- NOTE | 2019-03-23 10:19 | PN ---
[facility] Progress Note Note: PT COMPLETED DETOX ON [address] FROM 03/15/19 TO 03/19/19 AND TRANSFERRED TO REHAB SAME DAY AND NOW WANTS TO DISCONTINUE TREATMENT TODAY STATING "YOU KNOW I FEEL I NEED TO GET OUT THERE SINCE I WAS HERE PREVIOUSLY FOR OVER 25 DAYS AND FOLLOW UP WITH MY SOBRIETY AND TAKE CARE OF BUSINESS"." I GOT TO GET A ROOM. SEE MY DOCTOR AND GO TO AA MEETINGS". PT HAS BEEN REFERRED FOR CD AFTERCARE TO [facility] POSIT[facility] DIRECTIONS ON [address], [place]. PT HAS A PCP DR. SARA BAGLEY AT [facility] ON [address], [place] FOR MEDICAL MANAGEMENT. PT REPORTS HE HAS OWN MEDS IN HIS POSSESSION. ALERT O X 3. DENIES S/H/I. Home Medications Medication Instructions Recorded Baclofen 10 mg PO BID 12/10/18 Metoprolol Succinate [Toprol Xl] 12.5 mg PO DAILY 12/10/18 Pregabalin [Lyrica] 300 mg PO BID 12/10/18 Venlafaxine HCl [Effexor -] 225 mg PO DAILY 12/10/18 Albuterol Sulfate [Proair Hfa] 2 puff IH Q4H PRN 02/21/19 Amoxicillin - [Amoxicillin 500mg 500 mg PO TID #21 capsule 03/10/19 Capsule -] traZODone HCL [Desyrel -] 50 mg PO HS #30 tablet 03/10/19 Venlafaxine HCl ER [Effexor Xr -] 225 mg PO DAILY 03/16/19 Vital Signs - 24 hr 03/23/19 03/23/19 03/23/19 00:30 03:30 06:58 Temperature 97.3 F L Pulse Rate 92 H Respiratory 18 18 18 Rate Blood Pressure 114/71 Laboratory Tests 03/15/19 03/16/19 03/16/19 23:10 07:00 07:00 WBC 10.4 H RBC 4.50 Hgb 15.2 Hct 44.3 MCV 98.4 H MCH 33.8 H MCHC 34.4 RDW 14.6 Plt Count 228 MPV 9.4 Manual Slide Review Platelet Comment No clumping noted Sodium 142 Potassium 3.8 Chloride 102 Carbon Dioxide 33 H Anion Gap 6 L BUN 14 Creatinine 0.7 Creat Clearance w eGFR 115.04 Random Glucose 84 Calcium 8.5 Total Bilirubin 1.1 H AST 31 ALT 34 Alkaline Phosphatase 84 Total Protein 6.0 L Albumin 3.3 L Urine Color Yellow Urine Appearance Turbid Urine pH 5.0 Ur Specific Anthon 1.026 Urine Protein 1+ H Urine Glucose (UA) Negative Urine Ketones Trace H Urine Blood Negative Urine Nitrite Negative Urine Bilirubin Negative Urine Urobilinogen 0.2 Ur Leukocyte Esterase Negative Urine WBC (Auto) 3 Urine RBC (Auto) 6 Urine Casts (Auto) 17 U Epithel Cells (Auto) 2.5 Urine Crystals (Auto) Ca oxalate Urine Bacteria (Auto) 4.6 RPR Titer 03/16/19 07:00 WBC RBC Hgb Hct MCV MCH MCHC RDW Plt Count MPV Manual Slide Review Platelet Comment Sodium Potassium Chloride Carbon Dioxide Anion Gap BUN Creatinine Creat Clearance w eGFR Random Glucose Calcium Total Bilirubin AST ALT Alkaline Phosphatase Total Protein Albumin Urine Color Urine Appearance Urine pH Ur Specific Anthon Urine Protein Urine Glucose (UA) Urine Ketones Urine Blood Urine Nitrite Urine Bilirubin Urine Urobilinogen Ur Leukocyte Esterase Urine WBC (Auto) Urine RBC (Auto) Urine Casts (Auto) U Epithel Cells (Auto) Urine Crystals (Auto) Urine Bacteria (Auto) RPR Titer Nonreactive NAD PLAN:PT SIGNED OUT AMA FOLLOW UP WITH CD AFTERCARE RECOMMENDATION. FOLLOW UP WITH YOUR PCP, DR. SARA BAGLEY WITHIN 1-2 WEEKS AFTER DISCHARGE.
== END 2019-03-23 11:00 | disposition left against medical advice (07) | DRG 894 ==
LOC: YASAS 14:48 → Y3N 20:31 → UNDODISIN 03-18 06:30 → Y5N 03-19 23:17
PROVIDERS: ADMIT Surgery; ATTEND Neuromusculoskeletal Medicine & OMM
PROC: HZ42ZZZ Group Counseling for Substance Abuse Treatment, Cognitive-Behavioral (ICD-10-PCS; principal; 2019-03-15)
DX: F10.230 Alcohol dependence with withdrawal, uncomplicated (principal); F10.24 Alcohol dependence with alcohol-induced mood disorder; F10.282 Alcohol dependence with alcohol-induced sleep disorder; F10.220 Alcohol dependence with intoxication, uncomplicated; F17.210 Nicotine dependence, cigarettes, uncomplicated; F32.9 Major depressive disorder, single episode, unspecified; I10 Essential (primary) hypertension; M19.90 Unspecified osteoarthritis, unspecified site; J44.9 Chronic obstructive pulmonary disease, unspecified; G40.909 Epilepsy, unspecified, not intractable, without status epilepticus; E66.9 Obesity, unspecified; Z68.32 Body mass index [BMI] 32.0-32.9, adult; R26.2 Difficulty in walking, not elsewhere classified; Z99.89 Dependence on other enabling machines and devices; Z87.438 Personal history of other diseases of male genital organs
CPT/HCPCS: 36415; 80053; 81003; 85027; 86593; J0475

== ENCOUNTER 2019-04-22 15:56 | Inpatient (IN) | payer OTHER ==
[2019-04-22 17:51] VITALS: BMI 32.1
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
[2019-04-22] MEDS ORDERED: ACETAMINOPHEN 325 MG TABLET (FP) PO PRN ×2 (18:44)
[2019-04-22] MEDS ORDERED: MAGNESIUM CITRATE 300 ML BOTTLE PO PRN (18:44)
[2019-04-22] MEDS ORDERED: BISMUTH SUBSALICYLATE 524 MG/30 ML UD PO PRN (18:44)
[2019-04-22] MEDS ORDERED: hydrOXYzine PAMOATE 25 MG CAPSULE (FP) PO PRN (18:44)
[2019-04-22] MEDS ORDERED: MENTHOL/PHENOL 1 EACH UD MM PRN (18:44)
[2019-04-22] MEDS ORDERED: MAG HYDROX/AL HYDROX/SIMETH 30 ML UNIT-DOSE CUP PO PRN (18:44)
[2019-04-22] MEDS ORDERED: MAGNESIUM HYDROX 2400MG/30ML ORAL SUSPENSION 30 ML CUP PO PRN (18:44)
[2019-04-22] MEDS ORDERED: guaiFENesin 200 MG/10 ML 10 ML UNIT-DOSE CUPS PO PRN (18:44)
[2019-04-22] MEDS ORDERED: NICOTINE POLACRILEX 2 MG GUM BUC PRN (18:44)
[2019-04-22] MEDS ORDERED: ALBUTEROL SO4 8 GM HFA INHALER IH PRN (18:45)
[2019-04-22] MEDS ORDERED: chlordiazePOXIDE HCL 25 MG CAPSULE PO PRN (18:50)
[2019-04-22] MEDS ORDERED: chlordiazePOXIDE HCL 25 MG CAPSULE PO ONE (18:50)
[2019-04-22] MEDS ORDERED: ALBUTEROL SO4 0.083% IH SOL 2.5 MG/3 ML VIAL.NEB. NEB PRN (18:52)
[2019-04-22] MEDS: metoPROLOL SUCCINATE 25 MG TAB.SR.24H (FP) PO SCH (19:43)
[2019-04-22] MEDS: traZODone HCL 50 MG TABLET (FP) PO SCH (22:14)
[2019-04-22] MEDS: PREGABALIN 100 MG CAPSULE PO SCH (22:14)
[2019-04-22] MEDS: THIAMINE HCL 100 MG TABLET (FP) PO SCH (22:14)
[2019-04-22] MEDS: chlordiazePOXIDE HCL 25 MG CAPSULE PO SCH (22:14)
[2019-04-23] MEDS: chlordiazePOXIDE HCL 25 MG CAPSULE PO SCH ×4 (05:23→22:00)
--- NOTE | 2019-04-23 10:21 | PN ---
[facility] CIWA - CIWA Score Nausea/Vomitin-No Nausea/No Vomiting Muscle Tremors: 3 Anxiety: 2 Agitation: 2 Paroxysmal Sweats: 4-Forehead w/Sweat Beads Orientation: 0-Oriented Tacttile Disturbances: 2-Mild Itch/Numbness/Burn Auditory Disturbances: 0-None Visual Disturbances: 0-None Headache: 2-Mild CIWA-Ar Total Score: 15 [facility] Progress Note (SOAP) Subjective: c/o sweats, headache, anxiety, and shakes. Objective: 04/23/19 10:20 Vital Signs 04/23/19 04/23/19 04/23/19 02:30 03:00 03:30 Temperature Pulse Rate 101 H 101 H 96 H Respiratory 18 18 18 Rate Blood Pressure 04/23/19 04/23/19 04/23/19 04:00 04:30 05:00 Temperature Pulse Rate 100 H 103 H 103 H Respiratory 20 20 20 Rate Blood Pressure 04/23/19 04/23/19 04/23/19 05:30 06:00 06:08 Temperature 97 F L Pulse Rate 104 H 104 H 104 H Respiratory 20 20 20 Rate Blood Pressure 111/64 04/23/19 04/23/19 04/23/19 06:30 07:00 07:30 Temperature Pulse Rate 102 H 100 H 104 H Respiratory 20 20 20 Rate Blood Pressure 04/23/19 04/23/19 04/23/19 08:00 08:30 09:27 Temperature 98.4 F Pulse Rate 104 H 100 H 78 Respiratory 20 20 20 Rate Blood Pressure 136/78 Labs pending. Assessment: 04/23/19 10:20 AOX3, in no respiratory distress, full rom, ambulating in the unit. Withdrawal symptoms. Plan: continue detox increase fluids.
[2019-04-23] MEDS: PRENATAL VITAMINS W/ FOLIC ACID TABLET (FP) PO SCH (10:30)
[2019-04-23] MEDS: PREGABALIN 100 MG CAPSULE PO SCH ×2 (10:30→21:35)
[2019-04-23] MEDS: metoPROLOL SUCCINATE 25 MG TAB.SR.24H (FP) PO SCH (10:40)
[2019-04-23 10:45] LABS: ALBUMIN 3.4 g/dl (3.4-5.0); BILIRUBIN,TOTAL 0.4 mg/dL (0.2-1); CALCIUM 8.4 mg/dL (8.5-10.1); CREATININE 0.9 mg/dL (0.55-1.3); POTASSIUM 3.5 mmol/L (3.5-5.1); TOT PROT 6.1 g/dl (6.4-8.2)
--- NOTE | 2019-04-23 11:43 | CONSULT ---
[facility] Psychiatric Consult - Data Date of interview: 04/23/19 Admission source: [facility] Identifying data: Readmission to [facility] for this 58 y/o male self- referred for detoxification (alcohol). Examined at [address] [place] [address]. Patient is , a father of two, homeless, unemployed and supported on [facility] benefits. Substance Abuse History: Discussed in this session. Patient admits to using alcohol since age 13. Abuse has escalated into the consumption of up to 2 pints of vodka daily. Details in [facility] report : Smoking history: Current every day smoker. Have you smoked in the past 12 months: Yes. Aproximately how many cigarettes per day: 20. Hx Chewing Tobacco Use: No. Initiated information on smoking cessation: No. - Substances abused. Alcohol. Frequency: Daily. Amount used: 1-2 pints vodka. Age of first use: 13. Date of last use: 04/22/19 Medical History: Significant for COPD, hypertension, chronic lumbar pain, arthritis, history of seizure disorder + arthroscopic surgery (knees). Noted history of treatment for gonorrhea (age 17). Psychiatric History: Patient denies history of psychiatric hospitalizations. First psychiatric contact occurred approximately 4 years ago. Patient indicates that he was diagnosed with MDD and prescribed Effexor. Mr Rizvi is currently prescribed Effexor XR 225 mg/day.Patient is not followed by psychiatrists. He depends on his primary care physician for refills. Patient denies history of suicide attempts. Physical/Sexual Abuse/Trauma History: Patient denies. Additional Comment: Urine drug screen results: MTD-Methadone, BUP-Suboxone. Noted. Mental Status Exam - Mental Status Exam Alert and Oriented to: Time, Place, Person Cognitive Function: Good Patient Appearance: Well Groomed Mood: Nervous, Withdrawn Affect: Mood Congruent, Constricted Patient Behavior: Fatigued, Appropriate, Cooperative Speech Pattern: Clear, Appropriate Voice Loudness: Normal Thought Process: Intact, Goal Oriented Thought Disorder: Not Present Hallucinations: Denies Suicidal Ideation: Denies Homicidal Ideation: Denies Insight/Judgement: Fair Sleep: Poorly, Difficulty falling asleep Appetite: Good Muscle strength/Tone: Normal Gait/Station: Normal Psychiatric Findings - Problem List ([place] 1, 2,3) (1) Alcohol dependence with uncomplicated withdrawal Current Visit: Yes Status: Acute (2) Nicotine dependence Current Visit: Yes Status: Chronic Qualifiers: Nicotine product type: cigarettes Substance use status: uncomplicated Qualified Code(s): F17.210 - Nicotine dependence, cigarettes, uncomplicated (3) MDD (major depressive disorder) Current Visit: Yes Status: Chronic (4) Insomnia Current Visit: Yes Status: Chronic - Initial Treatment Plan Initial Treatment Plan: Psychoeducation. Sleep hygiene. Detoxification. Support. Medications (venlafaxine ER 225 mg/day + trazodone 50 mg/hs) are verified via survey of pharmacy claims of 04/18/19 at [facility]. Resumed as per orders. Side effects/benefits of both drugs are discussed with the patient. Made aware of the additional risk of hypertension and priapism. Patient declares good tolerability to this regimen. Verbal consent given to MD. Observation. No scripts needed at discharge from [facility].
[2019-04-23 11:49] LABS: HEMATOCRIT 45.5 % (35.4-49); HEMOGLOBIN 15.7 GM/dL (11.7-16.9); MCH 34.5 pg (25.7-33.7); MCHC 34.6 g/dl (32.0-35.9); MEAN CELL VOLUME 99.5 fl (80-96); MEAN PLT VOLUME 8.2 fl (7.5-11.1); RBC 4.57 M/mm3 (4.00-5.60); WHITE BLOOD COUNT 8.7 K/mm3 (4.0-10.0)
[2019-04-23 17:29] LABS: PLATELET COUNT 347 K/MM3 (134-434)
[2019-04-23] MEDS: traZODone HCL 50 MG TABLET (FP) PO SCH (21:35)
[2019-04-23] MEDS: THIAMINE HCL 100 MG TABLET (FP) PO SCH (21:36)
[2019-04-23] MEDS: IBUPROFEN 400 MG TABLET (FP) PO PRN (21:37)
[2019-04-24] MEDS: chlordiazePOXIDE HCL 25 MG CAPSULE PO SCH ×3 (05:37→17:12)
[2019-04-24] MEDS: IBUPROFEN 400 MG TABLET (FP) PO PRN ×2 (05:39→22:06)
[2019-04-24] MEDS: PREGABALIN 100 MG CAPSULE PO SCH ×2 (10:53→22:05)
[2019-04-24] MEDS: metoPROLOL SUCCINATE 25 MG TAB.SR.24H (FP) PO SCH (10:54)
[2019-04-24] MEDS: VENLAFAXINE HCL 75 MG TABLET PO SCH (10:55)
[2019-04-24] MEDS: PRENATAL VITAMINS W/ FOLIC ACID TABLET (FP) PO SCH (10:55)
--- NOTE | 2019-04-24 11:48 | PN ---
S CIWA - CIWA Score Nausea/Vomitin-Mild Nausea/No Vomiting Muscle Tremors: 4-Moderate,w/Arms Extend Anxiety: 3 Agitation: 2 Paroxysmal Sweats: 1-Minimal Palms Moist Orientation: 0-Oriented Tacttile Disturbances: 1-Very Mild Itch/Numbness Auditory Disturbances: 0-None Visual Disturbances: 0-None Headache: 1-Very Mild CIWA-Ar Total Score: 13 BHS Progress Note (SOAP) Subjective: ambulating with cane tremor tired with mild headache Objective: 04/24/19 11:49 Vital Signs Temperature 96.3 F L 04/24/19 09:12 Pulse Rate 94 H 04/24/19 09:12 Respiratory Rate 18 04/24/19 09:12 Blood Pressure 95/63 04/24/19 09:12 O2 Sat by Pulse Oximetry (%) Laboratory Last Values WBC 8.7 K/mm3 (4.0-10.0) 04/23/19 08:00 RBC 4.57 M/mm3 (4.00-5.60) 04/23/19 08:00 Hgb 15.7 GM/dL (11.7-16.9) 04/23/19 08:00 Hct 45.5 % (35.4-49) 04/23/19 08:00 MCV 99.5 fl (80-96) H 04/23/19 08:00 MCH 34.5 pg (25.7-33.7) H 04/23/19 08:00 MCHC 34.6 g/dl (32.0-35.9) 04/23/19 08:00 RDW 15.0 % (11.9-15.9) 04/23/19 08:00 Plt Count 347 K/MM3 (134-434) D 04/23/19 08:00 MPV 8.2 fl (7.5-11.1) D 04/23/19 08:00 Sodium 145 mmol/L (136-145) 04/23/19 08:00 Potassium 3.5 mmol/L (3.5-5.1) 04/23/19 08:00 Chloride 104 mmol/L (98-107) 04/23/19 08:00 Carbon Dioxide 32 mmol/L (21-32) 04/23/19 08:00 Anion Gap 9 MMOL/L (8-16) 04/23/19 08:00 BUN 13.0 mg/dL (7-18) 04/23/19 08:00 Creatinine 0.9 mg/dL (0.55-1.3) 04/23/19 08:00 Est GFR (CKD-EPI)AfAm 107.22 04/23/19 08:00 Est GFR (CKD-EPI)NonAf 92.51 04/23/19 08:00 Random Glucose 95 mg/dL (74-106) 04/23/19 08:00 Calcium 8.4 mg/dL (8.5-10.1) L 04/23/19 08:00 Total Bilirubin 0.4 mg/dL (0.2-1) 04/23/19 08:00 AST 24 U/L (15-37) 04/23/19 08:00 ALT 35 U/L (13-61) 04/23/19 08:00 Alkaline Phosphatase 83 U/L (45-117) 04/23/19 08:00 Total Protein 6.1 g/dl (6.4-8.2) L 04/23/19 08:00 Albumin 3.4 g/dl (3.4-5.0) 04/23/19 08:00 RPR Titer Nonreactive (NONREACTIVE) 04/23/19 08:00 lab noted Assessment: 04/24/19 11:50 alcohol withdrawal sx Plan: continue detox
[2019-04-24] MEDS: traZODone HCL 50 MG TABLET (FP) PO SCH (22:05)
[2019-04-24] MEDS: THIAMINE HCL 100 MG TABLET (FP) PO SCH (22:05)
[2019-04-24] MEDS: chlordiazePOXIDE HCL 10 MG CAPSULE PO SCH (22:05)
[2019-04-24] MEDS ORDERED: chlordiazePOXIDE HCL 10 MG CAPSULE PO PRN (23:00)
[2019-04-25] MEDS: chlordiazePOXIDE HCL 10 MG CAPSULE PO SCH ×4 (05:37→23:14)
[2019-04-25] MEDS: metoPROLOL SUCCINATE 25 MG TAB.SR.24H (FP) PO SCH (10:07)
[2019-04-25] MEDS: PREGABALIN 100 MG CAPSULE PO SCH ×2 (10:07→21:54)
[2019-04-25] MEDS: VENLAFAXINE HCL 75 MG TABLET PO SCH (10:07)
[2019-04-25] MEDS: PRENATAL VITAMINS W/ FOLIC ACID TABLET (FP) PO SCH (10:08)
--- NOTE | 2019-04-25 12:13 | PN ---
S CIWA - CIWA Score Nausea/Vomitin-Mild Nausea/No Vomiting Muscle Tremors: 2 Anxiety: 2 Agitation: 2 Paroxysmal Sweats: 1-Minimal Palms Moist Orientation: 0-Oriented Tacttile Disturbances: 0-None Auditory Disturbances: 0-None Visual Disturbances: 0-None Headache: 1-Very Mild CIWA-Ar Total Score: 9 S Progress Note (SOAP) Subjective: feeling better today sleep better at night less tremor social with peers in day room discuss aftercare with staff Objective: 04/25/19 12:12 Vital Signs Temperature 96.1 F L 04/25/19 09:04 Pulse Rate 73 04/25/19 09:04 Respiratory Rate 18 04/25/19 09:04 Blood Pressure 132/88 04/25/19 09:04 O2 Sat by Pulse Oximetry (%) Laboratory Last Values WBC 8.7 K/mm3 (4.0-10.0) 04/23/19 08:00 RBC 4.57 M/mm3 (4.00-5.60) 04/23/19 08:00 Hgb 15.7 GM/dL (11.7-16.9) 04/23/19 08:00 Hct 45.5 % (35.4-49) 04/23/19 08:00 MCV 99.5 fl (80-96) H 04/23/19 08:00 MCH 34.5 pg (25.7-33.7) H 04/23/19 08:00 MCHC 34.6 g/dl (32.0-35.9) 04/23/19 08:00 RDW 15.0 % (11.9-15.9) 04/23/19 08:00 Plt Count 347 K/MM3 (134-434) D 04/23/19 08:00 MPV 8.2 fl (7.5-11.1) D 04/23/19 08:00 Sodium 145 mmol/L (136-145) 04/23/19 08:00 Potassium 3.5 mmol/L (3.5-5.1) 04/23/19 08:00 Chloride 104 mmol/L (98-107) 04/23/19 08:00 Carbon Dioxide 32 mmol/L (21-32) 04/23/19 08:00 Anion Gap 9 MMOL/L (8-16) 04/23/19 08:00 BUN 13.0 mg/dL (7-18) 04/23/19 08:00 Creatinine 0.9 mg/dL (0.55-1.3) 04/23/19 08:00 Est GFR (CKD-EPI)AfAm 107.22 04/23/19 08:00 Est GFR (CKD-EPI)NonAf 92.51 04/23/19 08:00 Random Glucose 95 mg/dL (74-106) 04/23/19 08:00 Calcium 8.4 mg/dL (8.5-10.1) L 04/23/19 08:00 Total Bilirubin 0.4 mg/dL (0.2-1) 04/23/19 08:00 AST 24 U/L (15-37) 04/23/19 08:00 ALT 35 U/L (13-61) 04/23/19 08:00 Alkaline Phosphatase 83 U/L (45-117) 04/23/19 08:00 Total Protein 6.1 g/dl (6.4-8.2) L 04/23/19 08:00 Albumin 3.4 g/dl (3.4-5.0) 04/23/19 08:00 RPR Titer Nonreactive (NONREACTIVE) 04/23/19 08:00 lab noted Assessment: 04/25/19 12:12 alcohol withdrawal sx Plan: continue detox
[2019-04-25] MEDS: THIAMINE HCL 100 MG TABLET (FP) PO SCH (21:54)
[2019-04-25] MEDS: traZODone HCL 50 MG TABLET (FP) PO SCH (21:55)
[2019-04-26] MEDS: PREGABALIN 100 MG CAPSULE PO SCH ×2 (10:30→21:46)
[2019-04-26] MEDS: metoPROLOL SUCCINATE 25 MG TAB.SR.24H (FP) PO SCH (10:30)
[2019-04-26] MEDS: PRENATAL VITAMINS W/ FOLIC ACID TABLET (FP) PO SCH (10:30)
[2019-04-26] MEDS: chlordiazePOXIDE HCL 10 MG CAPSULE PO SCH (10:32)
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
--- NOTE | 2019-04-26 11:43 | HP ---
[facility] Rehab Assess/Revision - Admission History Admitted to Rehab from: [facility] Date of Admission to Rehab: 04/26/2019 - Vital signs Vital Signs: Vital Signs Period Temp Pulse Resp BP Sys/Amezcua Pulse Ox Last 24 Hr 96.8 F-98.1 F 62-92 16-18 108-123/63-81 - Findings Detox History & Physical reviewed: Yes Concur with findings: Yes Comments/Additional Findings: PATIENT'S MEDICAL / MEDICATION HISTORY REVIEWED PRIOR TO DISCHARGE FROM DETOX UNIT. PATIENT WAS DISCHARGED FROM DETOX UNIT TO BE TAKEN OVER TO REHAB UNIT IN STABLE MEDICAL CONDITION. Inpatient Rehab Admission - Rehab Decision to Admit Inpatient rehab admission?: Yes - Initial Determination Are CD services needed?: Yes Free of communicable disease: Yes Not in need of hospitalization: Yes - Rehab Admission Criteria Previous failed treatment: Yes Poor recovery environment: Yes Comorbidities: Yes Lacks judgement: No Patient is meeting Inpatient Rehab admission criteria:: Yes
[2019-04-26] MEDS: THIAMINE HCL 100 MG TABLET (FP) PO SCH (21:45)
[2019-04-26] MEDS: traZODone HCL 50 MG TABLET (FP) PO SCH (21:45)
[2019-04-26] MEDS: MELATONIN 5 MG TABLETS PO PRN (21:47)
[2019-04-27] MEDS: IBUPROFEN 400 MG TABLET (FP) PO PRN (06:09)
[2019-04-27] MEDS ORDERED: PT OWN MED DRAWER 7, Y5N ONE (08:29)
[2019-04-27] MEDS: PRENATAL VITAMINS W/ FOLIC ACID TABLET (FP) PO SCH (09:51)
[2019-04-27] MEDS: PREGABALIN 100 MG CAPSULE PO SCH ×3 (10:05→21:12)
[2019-04-27] MEDS: metoPROLOL SUCCINATE 25 MG TAB.SR.24H (FP) PO SCH (10:06)
--- NOTE | 2019-04-27 13:59 | CONSULT ---
[facility] Psychiatric Consult - Data Date of interview: 04/27/19 Admission source: Transfer from [address] [place] [address] Identifying data: Mr Rizvi has completed detoxification at [address] [place] [address] (see my note of 04/23/19 for details). Patient is now enrolled in rehabilitative care at [address] to address alcohol dependence co-morbid with major depressive disorder. Substance Abuse History: Smoking history: Current every day smoker. Have you smoked in the past 12 months: Yes. Aproximately how many cigarettes per day: 20. Hx Chewing Tobacco Use: No. Initiated information on smoking cessation: No. - Substances abused. Alcohol. Frequency: Daily. Amount used: 1-2 pints vodka. Age of first use: 13. Date of last use: 04/22/19 Medical History: Medical profile remains significant for COPD, hypertension, chronic lumbar pain, arthritis, history of seizure disorder + arthroscopic surgery (knees). Noted history of treatment for gonorrhea (age 17). Psychiatric History: Patient is a good and reliable historian. Mr Rizvi denies history of psychiatric hospitalizations. His first contact with a psychiatrist occurred approximately 4-6 years ago. Diagnosed, at the time, with MDD and placed on venlafaxine. Dose was titrated to 225 mg/day (ER formulation) . Over the years, the patient lost contact with his psychiatrist but he kept taking effexor (now prescribed by his primary care physician). 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 No reported history of suicide attempts. Physical/Sexual Abuse/Trauma History: No history of abuse. Heavy social stressors : homelessness, financial difficulties, lack of family support (being , separation from sons), alcohol use disorder, loneliness, physical disability, not fit for employment, mood dysregulation and hopelessness. Additional Comment: Urine drug screen results: MTD-Methadone, BUP-Suboxone. Noted. Mental Status Exam - Mental Status Exam Alert and Oriented to: Time, Place, Person Cognitive Function: Good Patient Appearance: Well Groomed (although unshaven) Mood: Withdrawn, Anxious, Apprehensive Affect: Mood Congruent, Constricted Patient Behavior: Appropriate, Cooperative (friendly) Speech Pattern: Clear, Appropriate Voice Loudness: Normal Thought Process: Intact, Goal Oriented Thought Disorder: Not Present Hallucinations: Denies Suicidal Ideation: Denies Homicidal Ideation: Denies Insight/Judgement: Good Sleep: Poorly, Difficulty falling asleep Appetite: Fair Muscle strength/Tone: Normal Gait/Station: Other (walks with a cane) Psychiatric Findings - Problem List ([place] 1, 2,3) (1) Alcohol use disorder Current Visit: Yes Status: Chronic (2) Nicotine dependence Current Visit: Yes Status: Chronic Qualifiers: Nicotine product type: cigarettes Substance use status: uncomplicated Qualified Code(s): F17.210 - Nicotine dependence, cigarettes, uncomplicated (3) MDD (major depressive disorder) Current Visit: Yes Status: Chronic Qualifiers: Major depression recurrence: unspecified whether recurrent Active/ Remission status: remission status unspecified Qualified Code(s): F32.9 - Major depressive disorder, single episode, unspecified (4) Insomnia Current Visit: Yes Status: Chronic Qualifiers: Insomnia type: unspecified Qualified Code(s): G47.00 - Insomnia, unspecified - Initial Treatment Plan Initial Treatment Plan: Support, reassurance and empathy are provided in this session. Social stressors discussed with counselor. Psychoeducation. Strategies for relapse prevention (MAT) discussed. Antidepressant medications (alternates to effexor) are revisited with patient. Mr Dmitri endorses a 5-6 year history of continuous treatment with venlafaxine. Patient is made aware that a taper will spread over several days or even weeks (to prevent rebound phenomena). Effexor ER resumed at 225 mg po daily. Patient is informed of risk of hypertension. No prior history of adverse effects. Patient gave his verbal consent to MD. Masters.
[2019-04-27] MEDS: THIAMINE HCL 100 MG TABLET (FP) PO SCH (21:11)
[2019-04-27] MEDS: traZODone HCL 50 MG TABLET (FP) PO SCH (21:11)
[2019-04-27] MEDS: MELATONIN 5 MG TABLETS PO PRN (21:13)
[2019-04-28] MEDS: PREGABALIN 100 MG CAPSULE PO SCH ×2 (06:05→17:44)
[2019-04-28] MEDS: VENLAFAXINE HCL 75 MG E.R. CAPSULES (FP) PO SCH (09:41)
[2019-04-28] MEDS: PRENATAL VITAMINS W/ FOLIC ACID TABLET (FP) PO SCH (09:41)
[2019-04-28] MEDS: metoPROLOL SUCCINATE 25 MG TAB.SR.24H (FP) PO SCH (09:41)
[2019-04-28] MEDS: BACLOFEN 10 MG TABLET (FP) PO SCH ×2 (14:31→21:38)
[2019-04-28] MEDS: traZODone HCL 50 MG TABLET (FP) PO SCH (21:38)
[2019-04-28] MEDS: THIAMINE HCL 100 MG TABLET (FP) PO SCH (21:38)
[2019-04-28] MEDS: MELATONIN 5 MG TABLETS PO PRN (21:39)
[2019-04-28] MEDS: IBUPROFEN 400 MG TABLET (FP) PO PRN (21:39)
[2019-04-29] MEDS: BACLOFEN 10 MG TABLET (FP) PO SCH ×3 (05:58→21:30)
[2019-04-29] MEDS: PREGABALIN 100 MG CAPSULE PO SCH ×2 (05:58→17:02)
[2019-04-29] MEDS: PRENATAL VITAMINS W/ FOLIC ACID TABLET (FP) PO SCH (09:55)
[2019-04-29] MEDS: VENLAFAXINE HCL 75 MG E.R. CAPSULES (FP) PO SCH (09:56)
[2019-04-29] MEDS: metoPROLOL SUCCINATE 25 MG TAB.SR.24H (FP) PO SCH (09:56)
[2019-04-29] MEDS: THIAMINE HCL 100 MG TABLET (FP) PO SCH (21:30)
[2019-04-29] MEDS: traZODone HCL 50 MG TABLET (FP) PO SCH (21:30)
[2019-04-30] MEDS: PREGABALIN 100 MG CAPSULE PO SCH ×2 (06:03→17:02)
[2019-04-30] MEDS: BACLOFEN 10 MG TABLET (FP) PO SCH ×3 (06:03→21:52)
[2019-04-30] MEDS: PRENATAL VITAMINS W/ FOLIC ACID TABLET (FP) PO SCH (09:08)
[2019-04-30] MEDS: metoPROLOL SUCCINATE 25 MG TAB.SR.24H (FP) PO SCH (09:08)
[2019-04-30] MEDS: VENLAFAXINE HCL 75 MG E.R. CAPSULES (FP) PO SCH (09:08)
[2019-04-30] MEDS: THIAMINE HCL 100 MG TABLET (FP) PO SCH (21:52)
[2019-04-30] MEDS: MELATONIN 5 MG TABLETS PO PRN (21:52)
[2019-04-30] MEDS: traZODone HCL 50 MG TABLET (FP) PO SCH (21:52)
[2019-05-01] MEDS: PREGABALIN 100 MG CAPSULE PO SCH ×2 (06:27→19:21)
[2019-05-01] MEDS: BACLOFEN 10 MG TABLET (FP) PO SCH ×3 (06:27→21:57)
[2019-05-01] MEDS ORDERED: ALBUTEROL SO4 0.083% IH SOL 2.5 MG/3 ML VIAL.NEB. NEB PRN (07:45)
[2019-05-01] MEDS: PRENATAL VITAMINS W/ FOLIC ACID TABLET (FP) PO SCH (09:53)
[2019-05-01] MEDS: VENLAFAXINE HCL 75 MG E.R. CAPSULES (FP) PO SCH (09:53)
[2019-05-01] MEDS: metoPROLOL SUCCINATE 25 MG TAB.SR.24H (FP) PO SCH (09:53)
[2019-05-01] MEDS: THIAMINE HCL 100 MG TABLET (FP) PO SCH (21:56)
[2019-05-01] MEDS: MELATONIN 5 MG TABLETS PO PRN (21:57)
[2019-05-01] MEDS: traZODone HCL 50 MG TABLET (FP) PO SCH (21:57)
[2019-05-02] MEDS: PREGABALIN 100 MG CAPSULE PO SCH ×2 (06:22→17:04)
[2019-05-02] MEDS: BACLOFEN 10 MG TABLET (FP) PO SCH ×3 (06:23→21:12)
[2019-05-02] MEDS: PRENATAL VITAMINS W/ FOLIC ACID TABLET (FP) PO SCH (10:07)
[2019-05-02] MEDS: metoPROLOL SUCCINATE 25 MG TAB.SR.24H (FP) PO SCH (10:07)
[2019-05-02] MEDS: VENLAFAXINE HCL 75 MG E.R. CAPSULES (FP) PO SCH (10:07)
--- NOTE | 2019-05-02 10:39 | PN ---
[facility] Progress Note Note: PATIENT SEEN FOR INTERMITTENT ANXIOUS SYMPTOMS. PATIENT SEEN BY PSYCH AND IS BEING TREATED WITH EFFEXOR. PATIENT STATES WHILE AT HOME HE WOULD TAKE VISTARIL NEEDED IN ADDITION TO EFFEXOR TO HELP WITH ANXIOUS SYMPTOMS AND WOULD LIKE TO RESUME VISTARIL PRN. PATIENT IS ALERT AND ORIENTED X 3, APPROPRIATE MOOD, DENIES SI/HI. MILDLY ANXIOUS REGARDING SOBRIETY. WILL ORDER VISTARIL 50MG Q6H PRN. IF SYMPTOMS PERSIST, CONSULT PSYCH. PATIENT EXPLAINED USE, ADMINISTRATION AND SIDE EFFECTS OF MEDICATION AND AGREES WITH PLAN OF CARE. Vital Signs (72 hours) 04/30/19 04/30/19 04/30/19 00:30 03:30 06:59 Temperature 98.4 F Pulse Rate 73 Respiratory 16 16 18 Rate Blood Pressure 121/75 04/30/19 05/01/19 05/01/19 09:30 00:30 03:29 Temperature Pulse Rate 83 Respiratory 18 16 16 Rate Blood Pressure 110/65 05/01/19 05/01/19 05/02/19 06:35 09:30 00:30 Temperature 98.3 F Pulse Rate 68 86 Respiratory 18 18 20 Rate Blood Pressure 101/71 116/85 05/02/19 05/02/19 03:30 06:38 Temperature 97.8 F Pulse Rate 77 Respiratory 20 18 Rate Blood Pressure 118/73
--- NOTE | 2019-05-02 10:42 | PN ---
S Progress Note Note: PATIENT C/O RASH TO BACK AREA. DENIES ANY RECENT CHANGES IS SOAP, DIET AND LAUNDRY DETERGENT. Vital Signs Temperature 97.8 F 05/02/19 06:38 Pulse Rate 77 05/02/19 06:38 Respiratory Rate 18 05/02/19 06:38 Blood Pressure 118/73 05/02/19 06:38 O2 Sat by Pulse Oximetry (%) PE: ALERT AND ORIENTED X 3 SKIN WARM AND DRY, + MACULAR RED RASH TO UPPER BACK AREA, NO VISIBLE LESIONS AND /OR ULCERATIONS A/P: DERMATITIS WILL ORDER HYDROCORTISONE CR 0.5% BID X 7 DAYS MONITOR CLINICALLY
[2019-05-02] MEDS: hydrOXYzine PAMOATE 50 MG CAPSULE (FP) PO PRN ×2 (14:47→21:13)
[2019-05-02] MEDS: traZODone HCL 50 MG TABLET (FP) PO SCH (21:12)
[2019-05-02] MEDS: MELATONIN 5 MG TABLETS PO PRN (21:12)
[2019-05-02] MEDS: THIAMINE HCL 100 MG TABLET (FP) PO SCH (21:13)
[2019-05-03] MEDS: PREGABALIN 100 MG CAPSULE PO SCH ×2 (05:59→18:01)
[2019-05-03] MEDS: BACLOFEN 10 MG TABLET (FP) PO SCH ×3 (05:59→21:45)
[2019-05-03] MEDS: VENLAFAXINE HCL 75 MG E.R. CAPSULES (FP) PO SCH (10:06)
[2019-05-03] MEDS: PRENATAL VITAMINS W/ FOLIC ACID TABLET (FP) PO SCH (10:07)
[2019-05-03] MEDS: metoPROLOL SUCCINATE 25 MG TAB.SR.24H (FP) PO SCH (10:07)
[2019-05-03] MEDS: hydrOXYzine PAMOATE 50 MG CAPSULE (FP) PO PRN ×2 (10:08→21:45)
[2019-05-03] MEDS: traZODone HCL 50 MG TABLET (FP) PO SCH (21:45)
[2019-05-03] MEDS: THIAMINE HCL 100 MG TABLET (FP) PO SCH (21:45)
[2019-05-03] MEDS: MELATONIN 5 MG TABLETS PO PRN (21:45)
[2019-05-04] MEDS: BACLOFEN 10 MG TABLET (FP) PO SCH ×3 (05:55→21:05)
[2019-05-04] MEDS: PREGABALIN 100 MG CAPSULE PO SCH ×2 (05:55→17:50)
[2019-05-04] MEDS: VENLAFAXINE HCL 75 MG E.R. CAPSULES (FP) PO SCH (09:42)
[2019-05-04] MEDS: hydrOXYzine PAMOATE 50 MG CAPSULE (FP) PO PRN ×2 (09:42→21:05)
[2019-05-04] MEDS: PRENATAL VITAMINS W/ FOLIC ACID TABLET (FP) PO SCH (09:42)
[2019-05-04] MEDS: metoPROLOL SUCCINATE 25 MG TAB.SR.24H (FP) PO SCH (09:43)
[2019-05-04] MEDS: THIAMINE HCL 100 MG TABLET (FP) PO SCH (21:05)
[2019-05-04] MEDS: traZODone HCL 50 MG TABLET (FP) PO SCH (21:05)
[2019-05-04] MEDS: MELATONIN 5 MG TABLETS PO PRN (21:05)
[2019-05-05] MEDS: BACLOFEN 10 MG TABLET (FP) PO SCH ×3 (06:11→22:00)
[2019-05-05] MEDS: PREGABALIN 100 MG CAPSULE PO SCH ×2 (06:11→17:02)
[2019-05-05] MEDS: VENLAFAXINE HCL 75 MG E.R. CAPSULES (FP) PO SCH (09:45)
[2019-05-05] MEDS: PRENATAL VITAMINS W/ FOLIC ACID TABLET (FP) PO SCH (09:45)
[2019-05-05] MEDS: metoPROLOL SUCCINATE 25 MG TAB.SR.24H (FP) PO SCH (09:45)
[2019-05-05] MEDS: hydrOXYzine PAMOATE 50 MG CAPSULE (FP) PO PRN ×2 (09:46→16:53)
[2019-05-05] MEDS ORDERED: PT OWN MED DRAWER 7, Y5N ONE (09:46)
[2019-05-05] MEDS: MELATONIN 5 MG TABLETS PO PRN (22:00)
[2019-05-05] MEDS: THIAMINE HCL 100 MG TABLET (FP) PO SCH (22:00)
[2019-05-05] MEDS: traZODone HCL 50 MG TABLET (FP) PO SCH (22:00)
[2019-05-06] MEDS: PREGABALIN 100 MG CAPSULE PO SCH ×2 (06:22→17:50)
[2019-05-06] MEDS: BACLOFEN 10 MG TABLET (FP) PO SCH ×3 (06:22→21:11)
[2019-05-06] MEDS: VENLAFAXINE HCL 75 MG E.R. CAPSULES (FP) PO SCH (10:29)
[2019-05-06] MEDS: PRENATAL VITAMINS W/ FOLIC ACID TABLET (FP) PO SCH (10:29)
[2019-05-06] MEDS: metoPROLOL SUCCINATE 25 MG TAB.SR.24H (FP) PO SCH (10:30)
[2019-05-06] MEDS: hydrOXYzine PAMOATE 50 MG CAPSULE (FP) PO PRN (10:30)
[2019-05-06] MEDS: IBUPROFEN 400 MG TABLET (FP) PO PRN (14:39)
[2019-05-06] MEDS: MELATONIN 5 MG TABLETS PO PRN (21:11)
[2019-05-06] MEDS: traZODone HCL 50 MG TABLET (FP) PO SCH (21:11)
[2019-05-06] MEDS: THIAMINE HCL 100 MG TABLET (FP) PO SCH (21:11)
[2019-05-07] MEDS: BACLOFEN 10 MG TABLET (FP) PO SCH ×3 (06:00→21:07)
[2019-05-07] MEDS: PREGABALIN 100 MG CAPSULE PO SCH ×2 (06:00→17:38)
[2019-05-07] MEDS: VENLAFAXINE HCL 75 MG E.R. CAPSULES (FP) PO SCH (10:09)
[2019-05-07] MEDS: PRENATAL VITAMINS W/ FOLIC ACID TABLET (FP) PO SCH (10:09)
[2019-05-07] MEDS: IBUPROFEN 400 MG TABLET (FP) PO PRN (10:10)
[2019-05-07] MEDS: hydrOXYzine PAMOATE 50 MG CAPSULE (FP) PO PRN ×2 (10:11→21:07)
[2019-05-07] MEDS: metoPROLOL SUCCINATE 25 MG TAB.SR.24H (FP) PO SCH (10:20)
[2019-05-07] MEDS: MELATONIN 5 MG TABLETS PO PRN (21:07)
[2019-05-07] MEDS: traZODone HCL 50 MG TABLET (FP) PO SCH (21:07)
[2019-05-07] MEDS: THIAMINE HCL 100 MG TABLET (FP) PO SCH (21:07)
[2019-05-08] MEDS: PREGABALIN 100 MG CAPSULE PO SCH ×2 (06:02→17:34)
[2019-05-08] MEDS: BACLOFEN 10 MG TABLET (FP) PO SCH ×3 (06:02→21:54)
[2019-05-08] MEDS: VENLAFAXINE HCL 75 MG E.R. CAPSULES (FP) PO SCH (09:40)
[2019-05-08] MEDS: metoPROLOL SUCCINATE 25 MG TAB.SR.24H (FP) PO SCH (09:41)
[2019-05-08] MEDS: hydrOXYzine PAMOATE 50 MG CAPSULE (FP) PO PRN ×2 (09:41→21:53)
[2019-05-08] MEDS: PRENATAL VITAMINS W/ FOLIC ACID TABLET (FP) PO SCH (09:41)
[2019-05-08] MEDS ORDERED: PT OWN MED DRAWER 7, Y5N ONE (13:16)
[2019-05-08] MEDS: THIAMINE HCL 100 MG TABLET (FP) PO SCH (21:53)
[2019-05-08] MEDS: traZODone HCL 50 MG TABLET (FP) PO SCH (21:53)
[2019-05-08] MEDS: MELATONIN 5 MG TABLETS PO PRN (21:53)
[2019-05-09] MEDS: BACLOFEN 10 MG TABLET (FP) PO SCH ×3 (06:34→21:05)
[2019-05-09] MEDS: PREGABALIN 100 MG CAPSULE PO SCH ×2 (06:34→17:37)
[2019-05-09] MEDS ORDERED: PT OWN MED DRAWER 7, Y5N ONE (09:05)
[2019-05-09] MEDS: PRENATAL VITAMINS W/ FOLIC ACID TABLET (FP) PO SCH (10:12)
[2019-05-09] MEDS: VENLAFAXINE HCL 75 MG E.R. CAPSULES (FP) PO SCH (10:12)
[2019-05-09] MEDS: metoPROLOL SUCCINATE 25 MG TAB.SR.24H (FP) PO SCH (10:12)
[2019-05-09] MEDS: THIAMINE HCL 100 MG TABLET (FP) PO SCH (21:05)
[2019-05-09] MEDS: hydrOXYzine PAMOATE 50 MG CAPSULE (FP) PO PRN (21:05)
[2019-05-09] MEDS: traZODone HCL 50 MG TABLET (FP) PO SCH (21:05)
[2019-05-09] MEDS: MELATONIN 5 MG TABLETS PO PRN (21:05)
[2019-05-10] MEDS: BACLOFEN 10 MG TABLET (FP) PO SCH ×3 (05:58→21:48)
[2019-05-10] MEDS: PREGABALIN 100 MG CAPSULE PO SCH ×2 (05:58→17:04)
[2019-05-10] MEDS: PRENATAL VITAMINS W/ FOLIC ACID TABLET (FP) PO SCH (10:15)
[2019-05-10] MEDS: metoPROLOL SUCCINATE 25 MG TAB.SR.24H (FP) PO SCH (10:16)
[2019-05-10] MEDS: VENLAFAXINE HCL 75 MG E.R. CAPSULES (FP) PO SCH (10:16)
[2019-05-10] MEDS: traZODone HCL 50 MG TABLET (FP) PO SCH (21:48)
[2019-05-10] MEDS: MELATONIN 5 MG TABLETS PO PRN (21:48)
[2019-05-10] MEDS: THIAMINE HCL 100 MG TABLET (FP) PO SCH (21:48)
[2019-05-11] MEDS: PREGABALIN 100 MG CAPSULE PO SCH ×2 (05:47→17:47)
[2019-05-11] MEDS: BACLOFEN 10 MG TABLET (FP) PO SCH ×3 (05:47→21:07)
[2019-05-11] MEDS: VENLAFAXINE HCL 75 MG E.R. CAPSULES (FP) PO SCH (10:03)
[2019-05-11] MEDS: PRENATAL VITAMINS W/ FOLIC ACID TABLET (FP) PO SCH (10:03)
[2019-05-11] MEDS: metoPROLOL SUCCINATE 25 MG TAB.SR.24H (FP) PO SCH (10:03)
[2019-05-11] MEDS: hydrOXYzine PAMOATE 50 MG CAPSULE (FP) PO PRN (14:58)
[2019-05-11] MEDS: traZODone HCL 50 MG TABLET (FP) PO SCH (21:07)
[2019-05-11] MEDS: THIAMINE HCL 100 MG TABLET (FP) PO SCH (21:07)
[2019-05-11] MEDS: MELATONIN 5 MG TABLETS PO PRN (21:08)
[2019-05-12] MEDS: BACLOFEN 10 MG TABLET (FP) PO SCH ×3 (05:51→21:04)
[2019-05-12] MEDS: PREGABALIN 100 MG CAPSULE PO SCH ×2 (05:51→18:08)
[2019-05-12] MEDS: metoPROLOL SUCCINATE 25 MG TAB.SR.24H (FP) PO SCH (10:10)
[2019-05-12] MEDS: PRENATAL VITAMINS W/ FOLIC ACID TABLET (FP) PO SCH (10:10)
[2019-05-12] MEDS: VENLAFAXINE HCL 75 MG E.R. CAPSULES (FP) PO SCH (10:10)
[2019-05-12] MEDS: hydrOXYzine PAMOATE 50 MG CAPSULE (FP) PO PRN (21:04)
[2019-05-12] MEDS: THIAMINE HCL 100 MG TABLET (FP) PO SCH (21:04)
[2019-05-12] MEDS: MELATONIN 5 MG TABLETS PO PRN (21:04)
[2019-05-12] MEDS: traZODone HCL 50 MG TABLET (FP) PO SCH (21:04)
[2019-05-13] MEDS: PREGABALIN 100 MG CAPSULE PO SCH ×2 (05:50→17:42)
[2019-05-13] MEDS: BACLOFEN 10 MG TABLET (FP) PO SCH ×3 (05:50→21:43)
[2019-05-13] MEDS: VENLAFAXINE HCL 75 MG E.R. CAPSULES (FP) PO SCH (09:42)
[2019-05-13] MEDS: PRENATAL VITAMINS W/ FOLIC ACID TABLET (FP) PO SCH (09:42)
[2019-05-13] MEDS: metoPROLOL SUCCINATE 25 MG TAB.SR.24H (FP) PO SCH (09:42)
[2019-05-13] MEDS: hydrOXYzine PAMOATE 50 MG CAPSULE (FP) PO PRN (21:43)
[2019-05-13] MEDS: THIAMINE HCL 100 MG TABLET (FP) PO SCH (21:43)
[2019-05-13] MEDS: MELATONIN 5 MG TABLETS PO PRN (21:44)
[2019-05-13] MEDS: traZODone HCL 50 MG TABLET (FP) PO SCH (21:44)
[2019-05-14] MEDS: PREGABALIN 100 MG CAPSULE PO SCH ×2 (06:11→17:33)
[2019-05-14] MEDS: BACLOFEN 10 MG TABLET (FP) PO SCH ×3 (06:11→21:04)
[2019-05-14] MEDS: PRENATAL VITAMINS W/ FOLIC ACID TABLET (FP) PO SCH (09:43)
[2019-05-14] MEDS: VENLAFAXINE HCL 75 MG E.R. CAPSULES (FP) PO SCH (09:43)
[2019-05-14] MEDS: metoPROLOL SUCCINATE 25 MG TAB.SR.24H (FP) PO SCH (09:43)
[2019-05-14] MEDS: hydrOXYzine PAMOATE 50 MG CAPSULE (FP) PO PRN (17:34)
[2019-05-14] MEDS: traZODone HCL 50 MG TABLET (FP) PO SCH (21:04)
[2019-05-14] MEDS: THIAMINE HCL 100 MG TABLET (FP) PO SCH (21:04)
[2019-05-14] MEDS: MELATONIN 5 MG TABLETS PO PRN (21:05)
[2019-05-15] MEDS: PREGABALIN 100 MG CAPSULE PO SCH ×2 (06:04→17:33)
[2019-05-15] MEDS: BACLOFEN 10 MG TABLET (FP) PO SCH ×3 (06:04→22:08)
[2019-05-15] MEDS: PRENATAL VITAMINS W/ FOLIC ACID TABLET (FP) PO SCH (10:24)
[2019-05-15] MEDS: VENLAFAXINE HCL 75 MG E.R. CAPSULES (FP) PO SCH (10:24)
[2019-05-15] MEDS: metoPROLOL SUCCINATE 25 MG TAB.SR.24H (FP) PO SCH (10:24)
[2019-05-15] MEDS: THIAMINE HCL 100 MG TABLET (FP) PO SCH (22:07)
[2019-05-15] MEDS: traZODone HCL 50 MG TABLET (FP) PO SCH (22:08)
[2019-05-15] MEDS: MELATONIN 5 MG TABLETS PO PRN (22:09)
[2019-05-15] MEDS: IBUPROFEN 400 MG TABLET (FP) PO PRN (22:09)
[2019-05-16] MEDS: BACLOFEN 10 MG TABLET (FP) PO SCH ×3 (06:03→21:09)
[2019-05-16] MEDS: PREGABALIN 100 MG CAPSULE PO SCH ×2 (06:03→17:46)
[2019-05-16] MEDS: IBUPROFEN 400 MG TABLET (FP) PO PRN ×2 (09:39→21:08)
[2019-05-16] MEDS: VENLAFAXINE HCL 75 MG E.R. CAPSULES (FP) PO SCH (09:40)
[2019-05-16] MEDS: metoPROLOL SUCCINATE 25 MG TAB.SR.24H (FP) PO SCH (09:40)
[2019-05-16] MEDS: PRENATAL VITAMINS W/ FOLIC ACID TABLET (FP) PO SCH (09:40)
[2019-05-16] MEDS: THIAMINE HCL 100 MG TABLET (FP) PO SCH (21:09)
[2019-05-16] MEDS: MELATONIN 5 MG TABLETS PO PRN (21:09)
[2019-05-16] MEDS: traZODone HCL 50 MG TABLET (FP) PO SCH (21:09)
[2019-05-17] MEDS: PREGABALIN 100 MG CAPSULE PO SCH ×2 (05:50→18:07)
[2019-05-17] MEDS: BACLOFEN 10 MG TABLET (FP) PO SCH ×3 (05:50→21:44)
[2019-05-17] MEDS: PRENATAL VITAMINS W/ FOLIC ACID TABLET (FP) PO SCH (10:25)
[2019-05-17] MEDS: VENLAFAXINE HCL 75 MG E.R. CAPSULES (FP) PO SCH (10:25)
[2019-05-17] MEDS: metoPROLOL SUCCINATE 25 MG TAB.SR.24H (FP) PO SCH (10:26)
[2019-05-17] MEDS: hydrOXYzine PAMOATE 50 MG CAPSULE (FP) PO PRN ×2 (14:56→21:44)
[2019-05-17] MEDS: MELATONIN 5 MG TABLETS PO PRN (21:44)
[2019-05-17] MEDS: traZODone HCL 50 MG TABLET (FP) PO SCH (21:44)
[2019-05-17] MEDS: THIAMINE HCL 100 MG TABLET (FP) PO SCH (21:44)
[2019-05-17] MEDS: IBUPROFEN 400 MG TABLET (FP) PO PRN (21:44)
[2019-05-18] MEDS: BACLOFEN 10 MG TABLET (FP) PO SCH ×3 (06:26→21:11)
[2019-05-18] MEDS: PREGABALIN 100 MG CAPSULE PO SCH ×2 (06:26→17:29)
[2019-05-18] MEDS: VENLAFAXINE HCL 75 MG E.R. CAPSULES (FP) PO SCH (09:41)
[2019-05-18] MEDS: metoPROLOL SUCCINATE 25 MG TAB.SR.24H (FP) PO SCH (09:41)
[2019-05-18] MEDS: IBUPROFEN 400 MG TABLET (FP) PO PRN ×2 (09:41→21:13)
[2019-05-18] MEDS: PRENATAL VITAMINS W/ FOLIC ACID TABLET (FP) PO SCH (09:41)
[2019-05-18] MEDS: hydrOXYzine PAMOATE 50 MG CAPSULE (FP) PO PRN (17:29)
[2019-05-18] MEDS: THIAMINE HCL 100 MG TABLET (FP) PO SCH (21:11)
[2019-05-18] MEDS: traZODone HCL 50 MG TABLET (FP) PO SCH (21:11)
[2019-05-18] MEDS: MELATONIN 5 MG TABLETS PO PRN (21:13)
[2019-05-19] MEDS: PREGABALIN 100 MG CAPSULE PO SCH ×2 (06:21→17:37)
[2019-05-19] MEDS: BACLOFEN 10 MG TABLET (FP) PO SCH ×3 (06:21→21:21)
[2019-05-19] MEDS: metoPROLOL SUCCINATE 25 MG TAB.SR.24H (FP) PO SCH (09:22)
[2019-05-19] MEDS: PRENATAL VITAMINS W/ FOLIC ACID TABLET (FP) PO SCH (09:22)
[2019-05-19] MEDS: VENLAFAXINE HCL 75 MG E.R. CAPSULES (FP) PO SCH (09:22)
[2019-05-19] MEDS: hydrOXYzine PAMOATE 50 MG CAPSULE (FP) PO PRN (21:21)
[2019-05-19] MEDS: MELATONIN 5 MG TABLETS PO PRN (21:21)
[2019-05-19] MEDS: traZODone HCL 50 MG TABLET (FP) PO SCH (21:21)
[2019-05-19] MEDS: THIAMINE HCL 100 MG TABLET (FP) PO SCH (21:21)
[2019-05-20] MEDS: BACLOFEN 10 MG TABLET (FP) PO SCH ×3 (06:36→21:59)
[2019-05-20] MEDS: PREGABALIN 100 MG CAPSULE PO SCH ×2 (06:36→18:13)
[2019-05-20] MEDS: PRENATAL VITAMINS W/ FOLIC ACID TABLET (FP) PO SCH (09:40)
[2019-05-20] MEDS: VENLAFAXINE HCL 75 MG E.R. CAPSULES (FP) PO SCH (09:40)
[2019-05-20] MEDS: metoPROLOL SUCCINATE 25 MG TAB.SR.24H (FP) PO SCH (09:40)
[2019-05-20] MEDS: IBUPROFEN 400 MG TABLET (FP) PO PRN ×3 (09:41→21:58)
[2019-05-20] MEDS: hydrOXYzine PAMOATE 50 MG CAPSULE (FP) PO PRN ×2 (14:57→21:59)
[2019-05-20] MEDS: MELATONIN 5 MG TABLETS PO PRN (21:59)
[2019-05-20] MEDS: traZODone HCL 50 MG TABLET (FP) PO SCH (21:59)
[2019-05-20] MEDS: THIAMINE HCL 100 MG TABLET (FP) PO SCH (21:59)
[2019-05-21] MEDS: BACLOFEN 10 MG TABLET (FP) PO SCH ×3 (06:04→21:03)
[2019-05-21] MEDS: PREGABALIN 100 MG CAPSULE PO SCH ×2 (06:04→17:37)
[2019-05-21] MEDS: PRENATAL VITAMINS W/ FOLIC ACID TABLET (FP) PO SCH (09:48)
[2019-05-21] MEDS: metoPROLOL SUCCINATE 25 MG TAB.SR.24H (FP) PO SCH (09:49)
[2019-05-21] MEDS: VENLAFAXINE HCL 75 MG E.R. CAPSULES (FP) PO SCH (09:49)
[2019-05-21] MEDS: IBUPROFEN 400 MG TABLET (FP) PO PRN (09:50)
[2019-05-21] MEDS: hydrOXYzine PAMOATE 50 MG CAPSULE (FP) PO PRN ×3 (09:50→21:03)
[2019-05-21] MEDS: THIAMINE HCL 100 MG TABLET (FP) PO SCH (21:03)
[2019-05-21] MEDS: MELATONIN 5 MG TABLETS PO PRN (21:03)
[2019-05-21] MEDS: traZODone HCL 50 MG TABLET (FP) PO SCH (21:03)
[2019-05-22] MEDS: PREGABALIN 100 MG CAPSULE PO SCH ×2 (05:52→17:49)
[2019-05-22] MEDS: BACLOFEN 10 MG TABLET (FP) PO SCH ×3 (05:52→21:59)
[2019-05-22] MEDS: metoPROLOL SUCCINATE 25 MG TAB.SR.24H (FP) PO SCH (10:19)
[2019-05-22] MEDS: VENLAFAXINE HCL 75 MG E.R. CAPSULES (FP) PO SCH (10:20)
[2019-05-22] MEDS: PRENATAL VITAMINS W/ FOLIC ACID TABLET (FP) PO SCH (10:20)
[2019-05-22] MEDS: hydrOXYzine PAMOATE 50 MG CAPSULE (FP) PO PRN ×2 (13:51→21:59)
[2019-05-22] MEDS: IBUPROFEN 400 MG TABLET (FP) PO PRN (13:52)
[2019-05-22] MEDS: MELATONIN 5 MG TABLETS PO PRN (21:59)
[2019-05-22] MEDS: traZODone HCL 50 MG TABLET (FP) PO SCH (21:59)
[2019-05-22] MEDS: THIAMINE HCL 100 MG TABLET (FP) PO SCH (21:59)
[2019-05-23] MEDS: BACLOFEN 10 MG TABLET (FP) PO SCH ×3 (06:30→21:57)
[2019-05-23] MEDS: PREGABALIN 100 MG CAPSULE PO SCH ×2 (06:30→17:50)
[2019-05-23] MEDS: IBUPROFEN 400 MG TABLET (FP) PO PRN ×2 (06:31→21:57)
[2019-05-23] MEDS: VENLAFAXINE HCL 75 MG E.R. CAPSULES (FP) PO SCH (09:43)
[2019-05-23] MEDS: metoPROLOL SUCCINATE 25 MG TAB.SR.24H (FP) PO SCH (09:44)
[2019-05-23] MEDS: PRENATAL VITAMINS W/ FOLIC ACID TABLET (FP) PO SCH (09:44)
[2019-05-23] MEDS: THIAMINE HCL 100 MG TABLET (FP) PO SCH (21:56)
[2019-05-23] MEDS: hydrOXYzine PAMOATE 50 MG CAPSULE (FP) PO PRN (21:57)
[2019-05-23] MEDS: traZODone HCL 50 MG TABLET (FP) PO SCH (21:57)
[2019-05-24] MEDS: BACLOFEN 10 MG TABLET (FP) PO SCH ×3 (06:35→21:51)
[2019-05-24] MEDS: PREGABALIN 100 MG CAPSULE PO SCH ×2 (06:35→17:47)
[2019-05-24] MEDS: VENLAFAXINE HCL 75 MG E.R. CAPSULES (FP) PO SCH (09:56)
[2019-05-24] MEDS: PRENATAL VITAMINS W/ FOLIC ACID TABLET (FP) PO SCH (09:57)
[2019-05-24] MEDS: metoPROLOL SUCCINATE 25 MG TAB.SR.24H (FP) PO SCH (09:57)
[2019-05-24] MEDS: hydrOXYzine PAMOATE 50 MG CAPSULE (FP) PO PRN ×2 (09:59→21:52)
[2019-05-24] MEDS: IBUPROFEN 400 MG TABLET (FP) PO PRN ×2 (09:59→21:52)
[2019-05-24] MEDS: traZODone HCL 50 MG TABLET (FP) PO SCH (21:51)
[2019-05-24] MEDS: THIAMINE HCL 100 MG TABLET (FP) PO SCH (21:51)
[2019-05-24] MEDS: MELATONIN 5 MG TABLETS PO PRN (21:51)
[2019-05-25] MEDS: BACLOFEN 10 MG TABLET (FP) PO SCH ×3 (06:26→21:15)
[2019-05-25] MEDS: PREGABALIN 100 MG CAPSULE PO SCH ×2 (06:26→18:18)
[2019-05-25] MEDS: PRENATAL VITAMINS W/ FOLIC ACID TABLET (FP) PO SCH (10:37)
[2019-05-25] MEDS: metoPROLOL SUCCINATE 25 MG TAB.SR.24H (FP) PO SCH (10:37)
[2019-05-25] MEDS: VENLAFAXINE HCL 75 MG E.R. CAPSULES (FP) PO SCH (10:38)
[2019-05-25] MEDS: hydrOXYzine PAMOATE 50 MG CAPSULE (FP) PO PRN (21:14)
[2019-05-25] MEDS: THIAMINE HCL 100 MG TABLET (FP) PO SCH (21:14)
[2019-05-25] MEDS: IBUPROFEN 400 MG TABLET (FP) PO PRN (21:14)
[2019-05-25] MEDS: traZODone HCL 50 MG TABLET (FP) PO SCH (21:15)
[2019-05-25] MEDS: MELATONIN 5 MG TABLETS PO PRN (21:16)
[2019-05-26 06:38] VITALS: BP 149/97; PULSE 77; TEMP 97.7
[2019-05-26] MEDS: PREGABALIN 100 MG CAPSULE PO SCH (06:44)
[2019-05-26] MEDS: BACLOFEN 10 MG TABLET (FP) PO SCH (06:44)
--- NOTE | 2019-05-26 07:54 | PN ---
[facility] Progress Note Note: Patient is scheduled for discharge today. Scripts for 30 days supply of medications(Effexor XR 225 mg/day, Trazadone 50 mg/hs) are electronically transmitted to [facility] at [address] [place], [place] [id number]
--- NOTE | 2019-05-26 08:27 | PN ---
S Progress Note (SOAP) Subjective: Patient discharged today, HOSPITAL COURSE: patient transferred to Rehab from Detox on 04/26/2019. While in Rehab, he attended all group meetings,had individual meeting with is counselor on a regular basis. He also met with psychiatry and continued treatment for his depression. He was adherent to his medication regimen. His most pressing medical problem was back pain and his pain regimen was adjusted to make his pain tolerable and he had no further complaints of pain after that. His BP was well controlled during his stay in rehab, and he experienced no seizures. Objective: A+O x3, no neurological deficits noted, PERRLA, heart rate regular, S1S2 audible , lungs clear, abd soft, non-tender, non-distended, +BS. Lower back tacker on palpation, but this is patient's baseline. Ambulates safely with a cane. Skin clear. CBC, BMP 04/23/19 08:00 04/23/19 08:00 Vital Signs (72 hours) 05/23/19 05/24/19 05/24/19 20:51 00:30 03:30 Temperature Pulse Rate 72 Respiratory 18 18 18 Rate Blood Pressure 112/76 05/24/19 05/25/19 05/25/19 06:41 00:30 03:30 Temperature 96.4 F L Pulse Rate 72 Respiratory 18 18 18 Rate Blood Pressure 122/76 05/25/19 05/25/19 05/26/19 06:37 10:31 00:30 Temperature 97.8 F Pulse Rate 78 70 Respiratory 16 18 18 Rate Blood Pressure 115/76 137/90 05/26/19 05/26/19 03:30 06:37 Temperature 97.7 F Pulse Rate 77 Respiratory 20 18 Rate Blood Pressure 149/97 05/26/19 08:32 Assessment: Based on his successful course in rehab and his discharge plan for aftercare, this patient is medically stable for discharge Discharge Dx: ETOH dependence COPD HTN Chronic back pain Seizures 05/26/19 08:34 05/26/19 08:36 Plan: Discharge plan: Patient will receive aftercare at [facility]; he receives primary care from Dr. Rodrigues at [facility] in [place]. Patient has medications in his possession and does not need medications transmitted to his pharmacy.
== END 2019-05-26 08:45 | disposition home or self-care (01) | DRG 895 ==
LOC: YASAS 15:56 → Y3N 19:00 → Y3W 04-26 11:35
PROVIDERS: ADMIT Neuromusculoskeletal Medicine & OMM; ATTEND Psychiatry & Neurology Psychiatry
PROC: HZ2ZZZZ Detoxification Services for Substance Abuse Treatment (ICD-10-PCS; 2019-04-22)
PROC: HZ42ZZZ Group Counseling for Substance Abuse Treatment, Cognitive-Behavioral (ICD-10-PCS; principal; 2019-04-26)
DX: F10.20 Alcohol dependence, uncomplicated (principal); F33.9 Major depressive disorder, recurrent, unspecified; F17.210 Nicotine dependence, cigarettes, uncomplicated; G47.00 Insomnia, unspecified; I10 Essential (primary) hypertension; J44.9 Chronic obstructive pulmonary disease, unspecified; G40.909 Epilepsy, unspecified, not intractable, without status epilepticus; M54.89 Other dorsalgia; G89.29 Other chronic pain; L30.9 Dermatitis, unspecified
CPT/HCPCS: 36415; 80053; 85027; 86593; J0475